=== PATIENT | male | born 1980 | race American Indian/Alaskan Native ===

== ENCOUNTER 2016-07-22 22:55 | Emergency (ER) | payer BC, MEDICARE ==
[2016-07-22 23:02] VITALS: BMI 49.1
[2016-07-22 23:04] VITALS: TEMP 99.2
[2016-07-22] MEDS ORDERED: Oxycodone/Acetaminophen 5/325 mg Tab PO STA (23:12)
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
[2016-07-23 01:09] VITALS: BP 154/90; PULSE 87; RESP 16; O2SAT 97
--- NOTE | 2016-07-23 08:45 | RAD ---
PROCEDURE: Left Knee Radiographs. HISTORY: Pain. COMPARISON: None. FINDINGS: BONES: Normal. No fracture. JOINTS: Normal. No osteoarthritis. JOINT EFFUSION: None. OTHER FINDINGS: None. IMPRESSION: Normal radiographs of the left knee.
== END 2016-07-23 01:07 | disposition home or self-care (01) ==
LOC: ED 22:55
DX: M25.562 Pain in left knee (principal); G89.29 Other chronic pain
CPT/HCPCS: 73562; 96372; 99284; J1885

== ENCOUNTER 2016-08-28 23:08 | Inpatient (IN) | payer BC, MEDICARE ==
[2016-08-28 23:37] VITALS: BMI 48.8
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
[2016-08-28] MEDS ORDERED: Sodium Chloride 0.9% 1,000 ML IV STA (23:52)
[2016-08-28] MEDS ORDERED: Morphine 4 mg/ml ISec IVP STA (23:52)
[2016-08-29 00:21] LABS: ALBUMIN 4.5 g/dL (3.0-4.8); ALT/SGPT 44 U/L (7-56); AST/SGOT 32 U/L (15-59); BLOOD UREA NITROGEN 16 mg/dL (7-21); CALCIUM 9.6 mg/dL (8.4-10.5); GFR AFRICAN-AMERICAN > 60; GFR NON-AFRICAN AMERICAN > 60; LIPASE 187 U/L (23-300); MEAN CELL VOLUME 88.3 fL (80.0-105.0); MEAN CORPUSCULAR HEMOGLOBIN 28.7 pg (25.0-35.0); MEAN CORPUSCULAR HGB CONC 32.6 g/dl (31.0-37.0); MEAN PLATELET VOLUME 9.1 fl (7.0-11.0); RBC 4.87 10^6/uL (3.5-6.1); RED CELL DISTRIBUTION WIDTH 13.7 % (11.5-14.5); WHITE BLOOD COUNT 14.3 10^3/ul (4.5-11.0)
[2016-08-29] MEDS ORDERED: cefTRIAXone 1 gm 1 GM/100 ML BAG IV STA ×2 (02:41→06:22)
[2016-08-29] MEDS ORDERED: metroNIDAZOLE IV 500 mg/100 ml 500 MG/100 ML BAG IVPB STA ×2 (02:42→06:12)
[2016-08-29 02:44] LABS: PH,URINE 5.5 (4.7-8.0); URINE BILIRUBIN NEGATIVE (NEGATIVE); URINE BLOOD TRACE-LYSED (NEGATIVE); URINE GLUCOSE (UA) NEGATIVE (NEGATIVE); URINE LEUKOCYTE ESTERASE NEGATIVE Leu/uL (NEGATIVE); URINE NITRATE NEGATIVE (NEGATIVE); URINE PROTEIN TRACE mg/dL (<30 mg/dL)
[2016-08-29 02:53] LABS: URINE APPEARANCE CLEAR (CLEAR); URINE COLOR YELLOW (YELLOW)
[2016-08-29] MEDS ORDERED: Sodium Chloride 0.9% 1,000 ML IV STA (02:53)
[2016-08-29 02:58] LABS: URINE EPITHELIAL CELLS 0 - 2 /hpf (0-5); URINE RBC 0 - 2 /hpf (0-2); URINE WBC 0 - 2 /hpf (0-6)
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
[2016-08-29] MEDS ORDERED: HYDROmorphone 1 mg/ml ISec IVP PRN (03:14)
--- NOTE | 2016-08-29 03:33 | CP.PCM.HP ---
History of Present Illness - History of Present Illness History of Present Illness: cc: Abdominal pain HPI: Patient is a 36 yo male with past medical history of HIV, HTN, SLE, rheumatoid arthritis, morbid obesity, and depression that presented to the ED c/ o intermittent RLQ abdomen pain for the past week. He reported that the pain radiates to the umbilicus, right groin and right flank. He describes the pain as sharp, 8/10 in severity that has been gradually worsening over the last week. Alleviating factors include rest and exacerbating factors include movement. He reported subjective fevers and chills however denied nausea and vomiting. Denies chest pain, palpitations, SOB, cough, focal weakness, numbness , tingling. A CT abdomen/pelvis done in the ED was consistent with acute appendicitis. He was subsequently admitted for surgical evaluation and medical management. 12point ROS as per HPI above otherwise negative PMHx: HTN, SLE, HIV, RA, depression PSHx: pericardial window in 2004 for a pericardial effusion Medications: Reviewed and as per chart Allergies: NKDA Social Hx: Former tobacco use, social alcohol use, denies illicit drug use Family Hx: History of HTN and DM2 runs in the family Present on Admission - Present on Admission Any Indicators Present on Admission: No Past Patient History - Infectious Disease Hx of Infectious Diseases: None - Tetanus Immunizations Tetanus Immunization: Unknown - Past Medical History & Family History Past Medical History?: Yes - Past Social History Smoking Status: Former Smoker - CARDIAC Hx Hypertension: Yes Other/Comment: pericaridal effusion - PULMONARY Hx Respiratory Disorders: No - NEUROLOGICAL Hx Neurological Disorder: No - HEENT Hx HEENT Problems: No - RENAL Hx Chronic Kidney Disease: No - ENDOCRINE/METABOLIC Hx Systemic Lupus Erythematosus: Yes - HEMATOLOGICAL/ONCOLOGICAL Other/Comment: HIV - INTEGUMENTARY Hx Dermatological Problems: No - MUSCULOSKELETAL/RHEUMATOLOGICAL Hx Falls: No Hx Osteoarthritis: Yes Hx Rheumatoid Arthritis: Yes - GASTROINTESTINAL Hx Gastrointestinal Disorders: No - GENITOURINARY/GYNECOLOGICAL Hx Genitourinary Disorders: No - PSYCHIATRIC Hx Substance Use: No - SURGICAL HISTORY Other/Comment: CARDIAC WINDOW 2004 - ANESTHESIA Hx Anesthesia: Yes Hx Anesthesia Reactions: No Hx Malignant Hyperthermia: No Meds Allergies/Adverse Reactions: Allergies Allergy/AdvReac Type Severity Reaction Status Date / Time No Known Allergies Allergy Verified 08/28/16 23:36 Physical Exam - Constitutional Appears: No Acute Distress - Head Exam Head Exam: ATRAUMATIC, NORMAL INSPECTION, NORMOCEPHALIC - Eye Exam Eye Exam: EOMI, PERRL - ENT Exam ENT Exam: Mucous Membranes Moist - Neck Exam Neck exam: Positive for: Normal Inspection. Negative for: Lymphadenopathy, Tenderness, Thyromegaly - Respiratory Exam Respiratory Exam: Clear to Auscultation Bilateral. absent: Rales, Rhonchi, Wheezes - Cardiovascular Exam Cardiovascular Exam: RRR, +S1, +S2. absent: Gallop, JVD, Rubs - GI/Abdominal Exam GI & Abdominal Exam: Distended, Guarding, Soft, Tenderness (RLQ tenderness to palpation,). absent: Rebound, Rigid Additional comments: positive mcburneys point - Extremities Exam Extremities exam: Positive for: normal inspection, pedal pulses present. Negative for: calf tenderness - Neurological Exam Neurological exam: Alert, CN II-XII Intact, Oriented x3 - Psychiatric Exam Psychiatric exam: Normal Affect, Normal Mood - Skin Skin Exam: Dry, Intact, Normal Color, Warm Results - Vital Signs Recent Vital Signs: Last Vital Signs Temp 100.0 F H 08/28/16 23:49 Pulse 118 H 08/28/16 23:49 Resp 20 08/28/16 23:49 BP 134/92 H 08/28/16 23:49 Pulse Ox 98 08/28/16 23:49 - Labs Result Diagrams: 08/28/16 23:55 08/28/16 23:55 Assessment & Plan - Assessment and Plan (Free Text) Plan: 36 yo male with past medical history of HIV, HTN, SLE, rheumatoid arthritis, morbid obesity, and depression presents c/o RLQ abdominal pain secondary to acute appendicitis 1. Acute appendicitis -CT Abd/pelvis consistent with acute appendicitis (please refer to full report) -Pain control -IVF hydration -Zofran PRN for nausea/vomiting -Tylenol PRN for fevers -Protonix -Patient given rocephin and flagyl in the ED for pre-surgical prophylaxis -NPO -Vitals q4h -Serial abdominal exams -Surgery consulted - Dr. Pelaez 2. HIV -Continue home medication stribild 3. Hypertension -Continue home norvac 4. GI/DVT prophylaxis -Protonix/SCD's Patient seen and case discussed with attending, Dr. Fowler - Date & Time Date: 08/29/16 Time: 03:37
[2016-08-29 07:04] LABS: BASO # 0.02 K/mm3 (0.0-2.0); BASO % 0.2 % (0.0-3.0); EOS % 0.3 % (1.5-5.0); GRAN # 7.34 (1.4-6.5); GRAN % 60.9 % (50.0-68.0); HEMOGLOBIN 13.2 gm/dL (14.0-18.0); LYMPH # 3.7 (1.2-3.4); MEAN CELL VOLUME 88.8 fL (80.0-105.0); MEAN CORPUSCULAR HEMOGLOBIN 28.4 pg (25.0-35.0); MEAN PLATELET VOLUME 9.1 fl (7.0-11.0); MONO # 0.9 (0.1-0.6); MONO % 7.6 % (1.0-6.0); PLATELET COUNT 306 10^3/uL (120.0-450.0); RBC 4.64 10^6/uL (3.5-6.1); RED CELL DISTRIBUTION WIDTH 13.9 % (11.5-14.5); WHITE BLOOD COUNT 12.1 10^3/ul (4.5-11.0)
[2016-08-29 07:19] LABS: INR 1.06 (0.93-1.08); PARTIAL THROMBOPLASTIN TIME 31.5 Seconds (23.7-30.8); PROTHROMBIN TIME 11.4 Seconds (9.9-11.8)
[2016-08-29 07:27] LABS: ALBUMIN 4.1 g/dL (3.0-4.8); ALT/SGPT 38 U/L (7-56); AST/SGOT 32 U/L (15-59); BLOOD UREA NITROGEN 15 mg/dL (7-21); CALCIUM 9.1 mg/dL (8.4-10.5); GFR AFRICAN-AMERICAN > 60; GFR NON-AFRICAN AMERICAN > 60
--- NOTE | 2016-08-29 07:45 | CT ---
PROCEDURE: CT Abdomen and Pelvis without intravenous contrast HISTORY: RIGHT LOWER ABD. PAIN COMPARISON: None. TECHNIQUE: Technique. Contrast Dose: Radiation dose: Total exam DLP = 1492 mGy-cm. This CT exam was performed using one or more of the following dose reduction techniques: Automated exposure control, adjustment of the mA and/or kV according to patient size, and/or use of iterative reconstruction technique. FINDINGS: LOWER THORAX: Unremarkable. LIVER: Unremarkable. No gross lesion or ductal dilatation. GALLBLADDER AND BILE DUCTS: CHOLELITHIASIS.. PANCREAS: Unremarkable. No gross lesion or ductal dilatation. SPLEEN: Unremarkable. ADRENALS: Unremarkable. No mass. KIDNEYS AND URETERS: Unremarkable. No hydronephrosis. No solid mass. VASCULATURE: Unremarkable. No aortic aneurysm. BOWEL: Unremarkable. No obstruction. No gross mural thickening. APPENDIX: MILD THICKENING OF THE APPENDIX WITH QUESTIONABLE REGIONAL INFLAMMATION; APPENDICITIS IS NOT EXCLUDED. PERITONEUM: Unremarkable. No free fluid. No free air. LYMPH NODES: Unremarkable. No enlarged lymph nodes. BLADDER: Unremarkable. REPRODUCTIVE: Unremarkable. BONES: No acute fracture. OTHER FINDINGS: None. IMPRESSION: MILD THICKENING OF THE APPENDIX WITH QUESTIONABLE REGIONAL INFLAMMATION; APPENDICITIS IS NOT EXCLUDED. CHOLELITHIASIS.
[2016-08-29] MEDS ORDERED: Bupivacaine 0.5% Inj(30mL) ONE (09:07)
[2016-08-29] MEDS ORDERED: Propofol 10 mg/ml Inj (20 ML) ONE (09:08)
[2016-08-29] MEDS ORDERED: Midazolam 2 MG/2 ML VIAL ONE (09:08)
[2016-08-29] MEDS ORDERED: Rocuronium 10 mg/ml (5 ml) ONE (09:09)
[2016-08-29] MEDS ORDERED: Succinylcholine 200 mg/10 ml Inj IV ONE (09:09)
--- NOTE | 2016-08-29 09:34 | CARD ---
APPROVED REPORT EKG Measurement Heart [id number] <Conclusion> Normal sinus rhythm Moderate voltage criteria for LVH, may be normal variant PRWP NSSTW changes Prolonged QT No change
[2016-08-29] MEDS ORDERED: Non Formulary Medication (Elviteg/Cobi/Emtric/Tenofo Dis [Stribild Tablet] 1 TAB) PO SCH (10:00)
[2016-08-29] MEDS ORDERED: cefTRIAXone (Rocephin) 1 gm Inj ONE ×2 (10:56→11:09)
[2016-08-29] MEDS ORDERED: Neostigmine Methylsulfate 3mg/3ml Syringe IV ONE (11:37)
[2016-08-29] MEDS ORDERED: HYDROmorphone 0.5 mg/0.5 ml ISec IVP PRN (12:11)
[2016-08-29] MEDS ORDERED: Lactated Ringer's 1,000 ML IV SCH (12:11)
--- NOTE | 2016-08-29 12:17 | PCM.SURG1 ---
Surgeon's Initial Post Op Note - Surgeon's Notes Surgeon: Dr. Pelaez Chips Screen Tender: Dr. Sierra PGY3; Dr. Cespedes PGY1 Type of Anesthesia: General Endo Pre-Operative Diagnosis: Acute Appendicitis Operative Findings: see operative report Post-Operative Diagnosis: same Operation Performed: Laparoscopic Appendectomy Specimen/Specimens Removed: appendix Estimated Blood Loss: EBL {In ML}: 5 Blood Products Given: N/A Post-Op Condition: Good Date of Surgery/Procedure: 08/29/16 Time of Surgery/Procedure: 12:17
--- NOTE | 2016-08-29 13:25 | CP.PCM.HP ---
History of Present Illness - History of Present Illness History of Present Illness: Mahendra Helm D.O. PGY-2, Internal Medicine, Dr. Marshall Service CC: RLQ Abdominal pain for 1 week 36 year old male with a PMH of HIV, HTN, SLE, RA, morbid obesity, and depression who presented to [facility] [place] [facility] with complaints of intermittent RLQ abdominal pain for the last week. Patient states that last monday he began to have this pain that radiated to his umbilicus, right groin and his flank as well. Patient states the pain is 8/10, sharp, worsening, intermittent, better with rest, worse with movement, and he had some chills and subjective fevers. No other complaints. Of note patient states that he came to the ER about 3-4 months ago with similar complaints and did have a full work up which did not reveal any issues. PMD: in [facility] PMH: as above PSH: pericardial window for effusion SH: quit smoking, social alcohol, no illicit drugs FH: HTN and DM in the multiple family members Medications: reviewed Allergies: NKA Present on Admission - Present on Admission Any Indicators Present on Admission: No Review of Systems - Constitutional Constitutional: Chills, Fever. absent: Anorexia - EENT Eyes: absent: Blind Spots, Blurred Vision Ears: absent: Decreased Hearing, Ear Discharge Nose/Mouth/Throat: absent: Epistaxis, Nasal Congestion - Cardiovascular Cardiovascular: absent: Chest Pain, Dyspnea - Respiratory Respiratory: absent: Cough, Dyspnea - Gastrointestinal Gastrointestinal: Abdominal Pain, Cramping. absent: Change in Bowel Habits - Genitourinary Genitourinary: absent: Difficulty Urinating, Dysuria - Musculoskeletal Musculoskeletal: Stiffness. absent: Numbness - Integumentary Integumentary: absent: Erythema, Furuncle - Neurological Neurological: absent: Abnormal Gait, Abnormal Hearing Past Patient History - Infectious Disease Hx of Infectious Diseases: None - Tetanus Immunizations Tetanus Immunization: Unknown - Past Medical History & Family History Past Medical History?: Yes - Past Social History Smoking Status: Former Smoker - CARDIAC Hx Hypertension: Yes Other/Comment: pericaridal effusion - PULMONARY Hx Respiratory Disorders: No - NEUROLOGICAL Hx Neurological Disorder: No - HEENT Hx HEENT Problems: No - RENAL Hx Chronic Kidney Disease: No - ENDOCRINE/METABOLIC Hx Systemic Lupus Erythematosus: Yes - HEMATOLOGICAL/ONCOLOGICAL Hx Blood Transfusions: No Hx Blood Transfusion Reaction: No - INTEGUMENTARY Hx Dermatological Problems: No - MUSCULOSKELETAL/RHEUMATOLOGICAL Hx Falls: No Hx Osteoarthritis: Yes Hx Rheumatoid Arthritis: Yes - GASTROINTESTINAL Hx Gastrointestinal Disorders: No - GENITOURINARY/GYNECOLOGICAL Hx Genitourinary Disorders: No - PSYCHIATRIC Hx Substance Use: No - SURGICAL HISTORY Hx Surgeries: Yes - ANESTHESIA Hx Anesthesia Reactions: No Hx Malignant Hyperthermia: No Meds Allergies/Adverse Reactions: Allergies Allergy/AdvReac Type Severity Reaction Status Date / Time No Known Allergies Allergy Verified 08/28/16 23:36 Physical Exam - Constitutional Appears: Non-toxic, No Acute Distress - Head Exam Head Exam: ATRAUMATIC, NORMOCEPHALIC - Eye Exam Eye Exam: EOMI, Normal appearance - ENT Exam ENT Exam: Mucous Membranes Moist, Normal Oropharynx - Neck Exam Additional comments: soft, supple - Respiratory Exam Respiratory Exam: Clear to Auscultation Bilateral. absent: Accessory Muscle Use , Rales, Rhonchi, Wheezes, Respiratory Distress - Cardiovascular Exam Cardiovascular Exam: RRR, +S1, +S2. absent: Gallop, Rubs, Systolic Murmur - GI/Abdominal Exam GI & Abdominal Exam: Distended, Guarding, Soft, Tenderness (RLQ) - Extremities Exam Extremities exam: Negative for: calf tenderness - Back Exam Back exam: absent: paraspinal tenderness, vertebral tenderness - Neurological Exam Neurological exam: Alert, CN II-XII Intact, Oriented x3 Results - Vital Signs Recent Vital Signs: Last Vital Signs Temp 98.7 F 08/29/16 12:58 Pulse 81 08/29/16 12:58 Resp 18 08/29/16 12:58 BP 143/91 H 08/29/16 12:58 Pulse Ox 98 08/29/16 12:58 - Labs Result Diagrams: 08/29/16 06:35 08/29/16 06:35 Labs: Laboratory Results - last 24 hr 08/29/16 08/29/16 08/29/16 06:35 06:35 06:35 WBC 12.1 H RBC 4.64 Hgb 13.2 L Hct 41.2 L MCV 88.8 MCH 28.4 MCHC 32.0 RDW 13.9 Plt Count 306 MPV 9.1 Gran % 60.9 Lymph % (Auto) 31.0 [place] % (Auto) 7.6 H Eos % (Auto) 0.3 L Baso % (Auto) 0.2 Gran # 7.34 H Lymph # 3.7 H [place] # 0.9 H Eos # 0.0 Baso # 0.02 PT 11.4 INR 1.06 APTT 31.5 H Sodium 141 Potassium 4.2 Chloride 103 Carbon Dioxide 27 Anion Gap 15 BUN 15 Creatinine 1.2 Est GFR ( Amer) > 60 Est GFR (Non-Af Amer) > 60 Random Glucose 103 Lactic Acid Calcium 9.1 Total Bilirubin 0.7 AST 32 ALT 38 Alkaline Phosphatase 76 Total Protein 8.4 H Albumin 4.1 Globulin 4.3 Albumin/Globulin Ratio 1.0 L Blood Type Blood Type Confirm Antibody Screen BBK History Checked 08/29/16 08/29/16 08/29/16 06:35 06:45 07:35 WBC RBC Hgb Hct MCV MCH MCHC RDW Plt Count MPV Gran % Lymph % (Auto) [place] % (Auto) Eos % (Auto) Baso % (Auto) Gran # Lymph # [place] # Eos # Baso # PT INR APTT Sodium Potassium Chloride Carbon Dioxide Anion Gap BUN Creatinine Est GFR ( Amer) Est GFR (Non-Af Amer) Random Glucose Lactic Acid 1.7 Calcium Total Bilirubin AST ALT Alkaline Phosphatase Total Protein Albumin Globulin Albumin/Globulin Ratio Blood Type AB POSITIVE Blood Type Confirm AB POSITIVE Antibody Screen Negative BBK History Checked No verified bt Assessment & Plan - Assessment and Plan (Free Text) Assessment: 36 year old male with a PMH of HIV, HTN, SLE, RA, morbid obesity, and depression who presented with complaints of intermittent RLQ abdominal pain for 1 week Plan: 1. Abdominal pain CT abd/pelvis consistent with acute appendicitis Surgery Dr. Pelaez consulted, discussed with surgery resident, will be going to surgery today NPO PRN zofran and tylenol Pain control Vitals q4h IVF Protonix 2. HIV - well managed, follows up regularly with ID, on stribild, cont 3. HTN - continue home norvasc, will monitor GI/DVT ppx: Protonix/SCDs Patient was seen and examined and case was discussed at length with attending physician. - Date & Time Date: 08/29/16 Time: 06:38
[2016-08-29] MEDS ORDERED: [UNRECOGNIZED DRUG - OTHER] PO SCH (14:39)
[2016-08-29] MEDS: Oxycodone/Acetaminophen 5/325 mg Tab PO PRN ×2 (17:52→23:43)
[2016-08-30] MEDS: Benzocaine/Menthol (Cepacol) Lozenge MT PRN ×2 (06:00→09:57)
[2016-08-30 08:07] VITALS: BP 124/75; RESP 20; TEMP 98.1; O2SAT 100
[2016-08-30 08:12] LABS: BASO # 0.02 K/mm3 (0.0-2.0); BASO % 0.2 % (0.0-3.0); EOS # 0.2 (0.0-0.7); EOS % 1.7 % (1.5-5.0); GRAN # 5.16 (1.4-6.5); GRAN % 59.3 % (50.0-68.0); HEMOGLOBIN 12.4 gm/dL (14.0-18.0); LYMPH # 2.7 (1.2-3.4); LYMPH % 30.5 % (22.0-35.0); MEAN CORPUSCULAR HEMOGLOBIN 28.1 pg (25.0-35.0); MEAN CORPUSCULAR HGB CONC 31.2 g/dl (31.0-37.0); MEAN PLATELET VOLUME 9.6 fl (7.0-11.0); MONO # 0.7 (0.1-0.6); MONO % 8.3 % (1.0-6.0); PLATELET COUNT 270 10^3/uL (120.0-450.0); RBC 4.42 10^6/uL (3.5-6.1); WHITE BLOOD COUNT 8.7 10^3/ul (4.5-11.0)
[2016-08-30 08:32] LABS: ALBUMIN 3.9 g/dL (3.0-4.8); ALT/SGPT 38 U/L (7-56); AST/SGOT 31 U/L (15-59); BLOOD UREA NITROGEN 12 mg/dL (7-21); CALCIUM 8.8 mg/dL (8.4-10.5); GFR AFRICAN-AMERICAN > 60; GFR NON-AFRICAN AMERICAN > 60
--- NOTE | 2016-08-30 09:01 | CP.PCM.PN ---
Subjective - Date & Time of Evaluation Date of Evaluation: 08/30/16 Time of Evaluation: 07:58 - Subjective Subjective: General Surgery Note Dr. Hilton Patient S&E at bedside. NAEON. Patient admits to dizziness. Currently tolerating diet. Patient has not had a BM. Patient admits to abdominal pain. Patient denies N/V, C/D. Objective - Vital Signs/Intake and Output Vital Signs (last 24 hours): Temp Pulse Resp BP Pulse Ox 98.1 F 64 20 124/75 100 08/30/16 08:06 08/30/16 08:06 08/30/16 08:06 08/30/16 08:06 08/30/16 08:06 Intake and Output: 08/30/16 08/30/16 06:59 18:59 Intake Total 1080 Balance 1080 - Medications Medications: Current Medications Acetaminophen (Tylenol 325mg Tab) 650 mg PO Q4H PRN PRN Reason: Fever >100.4 F Last Admin: 08/30/16 08:45 Dose: 650 mg Amlodipine Besylate (Norvasc) 5 mg PO DAILY [facility] Last Admin: 08/29/16 17:52 Dose: 5 mg Benzocaine/Menthol (Cepacol Sore Throat) 1 [place] Q2H PRN PRN Reason: Sore Throat Last Admin: 08/30/16 06:00 Dose: 1 [place]mer Hydromorphone HCl (Dilaudid) 0.5 mg IVP Q15M PRN PRN Reason: Pain, moderate (4-7) Hydroxychloroquine Sulfate (Plaquenil) 200 mg PO DAILY [facility] Last Admin: 08/29/16 17:52 Dose: 200 mg Elviteg/Margie/Emtric/Tenofo Dis [Stribild Tablet] (Home Med) 1 tab PO DAILY [facility] Ondansetron HCl (Zofran Inj) 4 mg IVP Q4H PRN PRN Reason: Nausea/Vomiting Last Admin: 08/29/16 06:45 Dose: 4 mg Oxycodone/Acetaminophen (Percocet 5/325 Mg Tab) 2 tab PO Q4H PRN PRN Reason: Pain, moderate (4-7) Stop: 09/01/16 12:15 Last Admin: 08/29/16 23:43 Dose: 2 tab Pantoprazole Sodium (Protonix Inj) 40 mg IVP DAILY [facility] Last Admin: 08/29/16 09:30 Dose: Not Given - Labs Labs: 08/30/16 08:05 08/30/16 08:05 PT 11.4 Seconds (9.9-11.8) 08/29/16 06:35 INR 1.06 (0.93-1.08) 08/29/16 06:35 APTT 31.5 Seconds (23.7-30.8) H 08/29/16 06:35 - Constitutional Appears: Well, No Acute Distress - Head Exam Head Exam: NORMAL INSPECTION - Eye Exam Eye Exam: EOMI, Normal appearance - Neck Exam Neck Exam: Full ROM - Respiratory Exam Respiratory Exam: NORMAL BREATHING PATTERN. absent: Accessory Muscle Use, Wheezes, Respiratory Distress - GI/Abdominal Exam GI & Abdominal Exam: Distended, Soft Additional comments: incision sites c/d/i. no signs of induration, erythema, drainage - Extremities Exam Extremities Exam: Full ROM - Back Exam Back Exam: Full ROM - Neurological Exam Neurological Exam: Alert, Awake, Oriented x3 - Psychiatric Exam Psychiatric exam: Flat Affect, Normal Mood - Skin Skin Exam: Dry, Normal Color, Warm Assessment and Plan - Assessment and Plan (Free Text) Assessment: 36 M presents with appendicitis s/p appendectomy POD #1 Plan: Monitor for tolerate regular diet. monitor CBC consider discharging patient from surgery standpoint
[2016-08-30 10:06] VITALS: PULSE 59
[2016-08-30] MEDS ORDERED: [UNRECOGNIZED DRUG - OTHER] PO SCH (10:25)
--- NOTE | 2016-08-30 10:31 | CP.PCM.DIS ---
<LAURA JUSTICE - Last Filed: 08/30/16 11:40> Provider - Provider Date of Admission: 08/29/16 02:35 Attending physician: Nito Marshall MD Primary care physician: Janak Boone MD Consults: Surgery: Benigno Time Spent in preparation of Discharge (in minutes): 40 Diagnosis - Discharge Diagnosis (1) Appendicitis Status: Acute Priority: High (2) Abdominal pain Status: Acute Priority: Medium (3) Bronchitis Status: Chronic Priority: Low Hospital Course - Lab Results Lab Results: Micro Results 08/29/16 03:20 Blood-Venous Blood Culture - Preliminary NO GROWTH AFTER 24 HOURS 08/29/16 03:05 Blood-Venous Blood Culture - Preliminary NO GROWTH AFTER 24 HOURS Most Recent Lab Values WBC 8.7 10^3/ul (4.5-11.0) D 08/30/16 08:05 RBC 4.42 10^6/uL (3.5-6.1) 08/30/16 08:05 Hgb 12.4 gm/dL (14.0-18.0) L 08/30/16 08:05 Hct 39.8 % (42.0-52.0) L 08/30/16 08:05 MCV 90.0 fL (80.0-105.0) 08/30/16 08:05 MCH 28.1 pg (25.0-35.0) 08/30/16 08:05 MCHC 31.2 g/dl (31.0-37.0) 08/30/16 08:05 RDW 14.0 % (11.5-14.5) 08/30/16 08:05 Plt Count 270 10^3/uL (120.0-450.0) 08/30/16 08:05 MPV 9.6 fl (7.0-11.0) 08/30/16 08:05 Gran % 59.3 % (50.0-68.0) 08/30/16 08:05 Lymph % (Auto) 30.5 % (22.0-35.0) 08/30/16 08:05 [place] % (Auto) 8.3 % (1.0-6.0) H 08/30/16 08:05 Eos % (Auto) 1.7 % (1.5-5.0) 08/30/16 08:05 Baso % (Auto) 0.2 % (0.0-3.0) 08/30/16 08:05 Gran # 5.16 (1.4-6.5) 08/30/16 08:05 Lymph # 2.7 (1.2-3.4) 08/30/16 08:05 [place] # 0.7 (0.1-0.6) H 08/30/16 08:05 Eos # 0.2 (0.0-0.7) 08/30/16 08:05 Baso # 0.02 K/mm3 (0.0-2.0) 08/30/16 08:05 PT 11.4 Seconds (9.9-11.8) 08/29/16 06:35 INR 1.06 (0.93-1.08) 08/29/16 06:35 APTT 31.5 Seconds (23.7-30.8) H 08/29/16 06:35 Sodium 139 mmol/L (132-148) 08/30/16 08:05 Potassium 4.3 mmol/L (3.6-5.0) 08/30/16 08:05 Chloride 100 mmol/L (98-107) 08/30/16 08:05 Carbon Dioxide 29 mmol/L (21-33) 08/30/16 08:05 Anion Gap 14 (10-20) 08/30/16 08:05 BUN 12 mg/dL (7-21) 08/30/16 08:05 Creatinine 1.1 mg/dL (0.5-1.4) 08/30/16 08:05 Est GFR ( Amer) > 60 08/30/16 08:05 Est GFR (Non-Af Amer) > 60 08/30/16 08:05 Random Glucose 108 mg/dL (70-110) 08/30/16 08:05 Lactic Acid 1.7 mmol/L (0.7-2.1) 08/29/16 06:45 Calcium 8.8 mg/dL (8.4-10.5) 08/30/16 08:05 Total Bilirubin 0.8 mg/dL (0.2-1.3) 08/30/16 08:05 AST 31 U/L (15-59) 08/30/16 08:05 ALT 38 U/L (7-56) 08/30/16 08:05 Alkaline Phosphatase 67 U/L (38-133) 08/30/16 08:05 Total Protein 8.0 g/dL (5.8-8.3) 08/30/16 08:05 Albumin 3.9 g/dL (3.0-4.8) 08/30/16 08:05 Globulin 4.1 gm/dL 08/30/16 08:05 Albumin/Globulin Ratio 1.0 (1.1-1.8) L 08/30/16 08:05 Lipase 187 U/L (23-300) 08/28/16 23:55 Procalcitonin < 0.05 NG/ML (0.19-0.49) L 08/28/16 23:55 Urine Color Yellow (YELLOW) 08/29/16 02:33 Urine Appearance Clear (CLEAR) 08/29/16 02:33 Urine pH 5.5 (4.7-8.0) 08/29/16 02:33 Ur Specific [place] >= 1.030 (1.005-1.035) 08/29/16 02:33 Urine Protein Trace mg/dL (<30 mg/dL) H 08/29/16 02:33 Urine Glucose (UA) Negative mg/dL (NEGATIVE) 08/29/16 02:33 Urine Ketones Negative mg/dL (NEGATIVE) 08/29/16 02:33 Urine Blood Trace-lysed (NEGATIVE) H 08/29/16 02:33 Urine Nitrate Negative (NEGATIVE) 08/29/16 02:33 Urine Bilirubin Negative (NEGATIVE) 08/29/16 02:33 Urine Urobilinogen 1.0 E.U./dL (<1 E.U./dL) H 08/29/16 02:33 Ur Leukocyte Esterase Negative Mauricio/uL (NEGATIVE) 08/29/16 02:33 Urine RBC 0 - 2 /hpf (0-2) 08/29/16 02:33 Urine WBC 0 - 2 /hpf (0-6) 08/29/16 02:33 Ur Epithelial Cells 0 - 2 /hpf (0-5) 08/29/16 02:33 Blood Type AB POSITIVE 08/29/16 06:35 Blood Type Confirm AB POSITIVE 08/29/16 07:35 Antibody Screen Negative 08/29/16 06:35 BBK History Checked No verified bt 08/29/16 06:35 - Hospital Course Hospital Course: This is a 36 year old male with a PMH of HIV, HTN, SLE, RA, morbid obesity, and depression who initially presented to [facility] with complaints of intermittent RLQ abdominal for the previous 6 days radiating to the umbilicus. In the ED, basic labwork was done which was significant for a white count of 14.3, low grade fever to 100.0, HR 118. CT abdomen and pelvis in the ED showed mild thickening of the appendix with questionable regional inflammation; appendicitis not excluded. Patient was admitted to [facility] for appendicitis. Surgery was consulted and recommended laparoscopic appendectomy. Surgery was uneventful with no complications. Overnight, no acute events. Today, POD 1, he is doing well, tolerating oral diet, urinating and passing flatus, with only minimal abdominal pain, improving since this morning. All questions were answered to patient's satisfaction and discharged to home. Discharge Exam - Head Exam Head Exam: NORMAL INSPECTION - Eye Exam Eye Exam: EOMI, Normal appearance, PERRL - ENT Exam ENT Exam: Mucous Membranes Moist - Neck Exam Neck exam: Full Rom - Respiratory Exam Respiratory Exam: Clear to PA & Lateral, NORMAL BREATHING PATTERN - Cardiovascular Exam Cardiovascular Exam: REGULAR RHYTHM, +S1, +S2. absent: JVD - GI/Abdominal Exam GI & Abdominal Exam: Normal Bowel Sounds. absent: Guarding, Rigid, Tenderness Additional comments: 3 wounds, CDI - Extremities Exam Extremities exam: normal inspection - Back Exam Back exam: absent: CVA tenderness (L), CVA tenderness (R) - Neurological Exam Neurological exam: Alert, CN II-XII Intact, Oriented x3 - Psychiatric Exam Psychiatric exam: Normal Affect, Normal Mood - Skin Skin Exam: Dry, Intact, Normal Color Discharge Plan - Discharge Medications Prescriptions: Docusate Sodium [Colace] 100 mg PO Q8H PRN #20 capsule PRN Reason: Constipation oxyCODONE/Acetaminophen [Percocet 5/325 mg Tab] 1 ea PO Q6H PRN #30 tab PRN Reason: Pain, Moderate (4-7) - Follow Up Plan Condition: IMPROVED Disposition: HOME/ ROUTINE Patient education suggested?: Yes Instructions: Pain Management After Surgery (DC), Laparoscopic Appendectomy (DC ), Narcotic Pain Management (DC), Acute Abdominal Pain (DC), Acute Abdominal Pain (GEN) Additional Instructions: 1. Follow up with PMD within 2-3 days 2. Follow up with surgery within 1-2 weeks as indicated 3. Return to the ER if experiencing any new or worsening symptoms Referrals: Janak Boone MD [Primary Care Provider] - Angel Pelaez MD [Medical Doctor] - <Jj Rosario - Last Filed: 08/31/16 15:28> Provider - Provider Date of Admission: 08/29/16 02:35 Attending physician: Nito Marshall MD Primary care physician: Janak Boone MD Hospital Course - Lab Results Lab Results: Micro Results 08/29/16 03:20 Blood-Venous Blood Culture - Preliminary NO GROWTH AFTER 48 HOURS 08/29/16 03:05 Blood-Venous Blood Culture - Preliminary NO GROWTH AFTER 48 HOURS Most Recent Lab Values WBC 8.7 10^3/ul (4.5-11.0) D 08/30/16 08:05 RBC 4.42 10^6/uL (3.5-6.1) 08/30/16 08:05 Hgb 12.4 gm/dL (14.0-18.0) L 08/30/16 08:05 Hct 39.8 % (42.0-52.0) L 08/30/16 08:05 MCV 90.0 fL (80.0-105.0) 08/30/16 08:05 MCH 28.1 pg (25.0-35.0) 08/30/16 08:05 MCHC 31.2 g/dl (31.0-37.0) 08/30/16 08:05 RDW 14.0 % (11.5-14.5) 08/30/16 08:05 Plt Count 270 10^3/uL (120.0-450.0) 08/30/16 08:05 MPV 9.6 fl (7.0-11.0) 08/30/16 08:05 Gran % 59.3 % (50.0-68.0) 08/30/16 08:05 Lymph % (Auto) 30.5 % (22.0-35.0) 08/30/16 08:05 [place] % (Auto) 8.3 % (1.0-6.0) H 08/30/16 08:05 Eos % (Auto) 1.7 % (1.5-5.0) 08/30/16 08:05 Baso % (Auto) 0.2 % (0.0-3.0) 08/30/16 08:05 Gran # 5.16 (1.4-6.5) 08/30/16 08:05 Lymph # 2.7 (1.2-3.4) 08/30/16 08:05 [place] # 0.7 (0.1-0.6) H 08/30/16 08:05 Eos # 0.2 (0.0-0.7) 08/30/16 08:05 Baso # 0.02 K/mm3 (0.0-2.0) 08/30/16 08:05 PT 11.4 Seconds (9.9-11.8) 08/29/16 06:35 INR 1.06 (0.93-1.08) 08/29/16 06:35 APTT 31.5 Seconds (23.7-30.8) H 08/29/16 06:35 Sodium 139 mmol/L (132-148) 08/30/16 08:05 Potassium 4.3 mmol/L (3.6-5.0) 08/30/16 08:05 Chloride 100 mmol/L (98-107) 08/30/16 08:05 Carbon Dioxide 29 mmol/L (21-33) 08/30/16 08:05 Anion Gap 14 (10-20) 08/30/16 08:05 BUN 12 mg/dL (7-21) 08/30/16 08:05 Creatinine 1.1 mg/dL (0.5-1.4) 08/30/16 08:05 Est GFR ( Amer) > 60 08/30/16 08:05 Est GFR (Non-Af Amer) > 60 08/30/16 08:05 Random Glucose 108 mg/dL (70-110) 08/30/16 08:05 Lactic Acid 1.7 mmol/L (0.7-2.1) 08/29/16 06:45 Calcium 8.8 mg/dL (8.4-10.5) 08/30/16 08:05 Total Bilirubin 0.8 mg/dL (0.2-1.3) 08/30/16 08:05 AST 31 U/L (15-59) 08/30/16 08:05 ALT 38 U/L (7-56) 08/30/16 08:05 Alkaline Phosphatase 67 U/L (38-133) 08/30/16 08:05 Total Protein 8.0 g/dL (5.8-8.3) 08/30/16 08:05 Albumin 3.9 g/dL (3.0-4.8) 08/30/16 08:05 Globulin 4.1 gm/dL 08/30/16 08:05 Albumin/Globulin Ratio 1.0 (1.1-1.8) L 08/30/16 08:05 Lipase 187 U/L (23-300) 08/28/16 23:55 Procalcitonin < 0.05 NG/ML (0.19-0.49) L 08/28/16 23:55 Urine Color Yellow (YELLOW) 08/29/16 02:33 Urine Appearance Clear (CLEAR) 08/29/16 02:33 Urine pH 5.5 (4.7-8.0) 08/29/16 02:33 Ur Specific [place] >= 1.030 (1.005-1.035) 08/29/16 02:33 Urine Protein Trace mg/dL (<30 mg/dL) H 08/29/16 02:33 Urine Glucose (UA) Negative mg/dL (NEGATIVE) 08/29/16 02:33 Urine Ketones Negative mg/dL (NEGATIVE) 08/29/16 02:33 Urine Blood Trace-lysed (NEGATIVE) H 08/29/16 02:33 Urine Nitrate Negative (NEGATIVE) 08/29/16 02:33 Urine Bilirubin Negative (NEGATIVE) 08/29/16 02:33 Urine Urobilinogen 1.0 E.U./dL (<1 E.U./dL) H 08/29/16 02:33 Ur Leukocyte Esterase Negative Mauricio/uL (NEGATIVE) 08/29/16 02:33 Urine RBC 0 - 2 /hpf (0-2) 08/29/16 02:33 Urine WBC 0 - 2 /hpf (0-6) 08/29/16 02:33 Ur Epithelial Cells 0 - 2 /hpf (0-5) 08/29/16 02:33 Blood Type AB POSITIVE 08/29/16 06:35 Blood Type Confirm AB POSITIVE 08/29/16 07:35 Antibody Screen Negative 08/29/16 06:35 BBK History Checked No verified bt 08/29/16 06:35 Attending/Attestation - Attestation I have personally seen and examined this patient.: Yes I have fully participated in the care of the patient.: Yes I have reviewed all pertinent clinical information, including history, physical exam and plan: Yes Notes (Text): 08/31/16 15:28 Medical record note made by the resident after discussion with my direction and input after the patient was personally seen and examined by me. I have reviewed the chart and agree that the record accurately reflects by personal performance of the history, physical exam, data review, and medical decision-making, in the course for the patient. I have also personally directed the plan of care.
== END 2016-08-30 14:15 | disposition home or self-care (01) | DRG 342 ==
LOC: ED 23:08 → ERH 08-29 02:35 → 5RSO 08-29 04:40
PROVIDERS: ADMIT Internal Medicine; ATTEND Internal Medicine
PROC: 0DTJ4ZZ Resection of Appendix, Percutaneous Endoscopic Approach (ICD-10-PCS; principal; 2016-08-29 10:00)
DX: K35.80 Unspecified acute appendicitis (principal); Z68.42 Body mass index [BMI] 45.0-49.9, adult; M32.9 Systemic lupus erythematosus, unspecified; Z21 Asymptomatic human immunodeficiency virus [HIV] infection status; I10 Essential (primary) hypertension; M06.9 Rheumatoid arthritis, unspecified; F32.9 Major depressive disorder, single episode, unspecified; E66.01 Morbid (severe) obesity due to excess calories; J40 Bronchitis, not specified as acute or chronic; Z87.891 Personal history of nicotine dependence

== ENCOUNTER 2016-11-23 16:00 | Emergency (ER) | payer BC, MEDICARE ==
[2016-11-23 16:05] VITALS: BMI 55.5
[2016-11-23 16:19] VITALS: TEMP 97.9; O2SAT 98
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
--- NOTE | 2016-11-23 16:56 | RAD ---
HISTORY: chest pain COMPARISON: Portable chest 02/17/2016. FINDINGS: LUNGS: No active pulmonary disease. PLEURA: No significant pleural effusion identified, no pneumothorax apparent. CARDIOVASCULAR: Stable prominent cardiac silhouette. No pulmonary vascular derangement appreciated. OSSEOUS STRUCTURES: No significant abnormalities. VISUALIZED UPPER ABDOMEN: Normal. OTHER FINDINGS: None. IMPRESSION: No acute cardiopulmonary disease identified in the interval. Stable prominent cardiac silhouette again noted.
[2016-11-23 17:09] LABS: BASO # 0.01 K/mm3 (0.0-2.0); BASO % 0.1 % (0.0-3.0); EOS % 0.3 % (1.5-5.0); GRAN # 4.41 (1.4-6.5); HEMATOCRIT 43.1 % (42.0-52.0); LYMPH # 3.8 (1.2-3.4); LYMPH % 41.7 % (22.0-35.0); MEAN CELL VOLUME 88.3 fl (80.0-105.0); MEAN CORPUSCULAR HEMOGLOBIN 28.5 pg (25.0-35.0); MEAN CORPUSCULAR HGB CONC 32.3 g/dl (31.0-37.0); MEAN PLATELET VOLUME 8.9 fl (7.0-11.0); MONO # 0.8 (0.1-0.6); MONO % 8.9 % (1.0-6.0); RED CELL DISTRIBUTION WIDTH 13.8 % (11.5-14.5)
[2016-11-23 17:18] LABS: ALKALINE PHOSPHATASE 61 U/L (38-126); ALT/SGPT 28 U/L (7-56); AST/SGOT 26 U/L (17-59); BILIRUBIN,TOTAL 0.6 mg/dL (0.2-1.3); BLOOD UREA NITROGEN 13 mg/dL (7-21); CALCIUM 9.5 mg/dL (8.4-10.5); CARBON DIOXIDE 29 mmol/L (21-33); CHLORIDE 103 mmol/L (98-107); GFR AFRICAN-AMERICAN > 60; GLUCOSE,RANDOM 105 mg/dL (70-110); MAGNESIUM 1.9 mg/dL (1.7-2.2); POTASSIUM 4.3 mmol/L (3.6-5.0); SODIUM 144 mmol/L (132-148); TOTAL PROTEIN 8.4 g/dL (5.8-8.3)
[2016-11-23 17:20] LABS: INR 1.01 (0.93-1.08); PARTIAL THROMBOPLASTIN TIME 28.4 Seconds (23.7-30.8)
[2016-11-23 17:21] LABS: D DIMER 0.39 mg/L FEU (0-0.50)
[2016-11-23 17:33] LABS: TROPONIN I < 0.01 ng/mL
[2016-11-23 19:05] VITALS: BP 139/82; PULSE 91; RESP 16
--- NOTE | 2016-11-24 08:49 | CARD ---
APPROVED REPORT EKG Measurement Heart [id number] <Conclusion> Sinus tachycardia Possible Left atrial enlargement Nonspecific STT wave abnormality LVH Prolonged QTc No change except increased heart rate
== END 2016-11-23 18:30 | disposition home or self-care (01) ==
LOC: ED 16:00
DX: R07.9 Chest pain, unspecified (principal); I10 Essential (primary) hypertension; M32.9 Systemic lupus erythematosus, unspecified; M06.9 Rheumatoid arthritis, unspecified; F17.210 Nicotine dependence, cigarettes, uncomplicated

== ENCOUNTER 2017-03-24 09:47 | Emergency (ER) | payer BC, MEDICARE ==
[2017-03-24 09:48] VITALS: BMI 55.5
[2017-03-24 10:20] VITALS: TEMP 97.9
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
[2017-03-24 12:29] VITALS: BP 141/91; PULSE 74; RESP 18; O2SAT 99
--- NOTE | 2017-03-24 13:30 | RAD ---
PROCEDURE: Radiographs of the Lumbar Spine. HISTORY: back pain COMPARISON: No prior. FINDINGS: BONES: There is normal alignment of the lumbar vertebral bodies. There is normal lumbar lordosis. There is no acute fracture, spondylolysis or spondylolisthesis. Bone mineralization is normal. DISC SPACES: There mild degenerative disc disease in the lower lumbar spine with anterior spurring, reduced disc heights and multilevel facet arthropathy. OTHER FINDINGS: There are no pathologic soft tissue calcifications. Both sacroiliac joints are IMPRESSION: No acute fracture, spondylolysis or spondylolisthesis. Mild multilevel degenerative disc disease.
== END 2017-03-24 13:45 | disposition home or self-care (01) ==
LOC: ED 09:47
DX: M54.9 Dorsalgia, unspecified (principal); I10 Essential (primary) hypertension; F17.210 Nicotine dependence, cigarettes, uncomplicated
CPT/HCPCS: 72110; 96372; 99284; J1885

== ENCOUNTER 2017-12-10 20:37 | Emergency (ER) | payer BC, MEDICARE ==
[2017-12-10 20:37] VITALS: BMI 55.5
[2017-12-10 21:51] VITALS: RESP 18
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
[2017-12-10 23:36] VITALS: BP 135/81; PULSE 75; TEMP 98.2; O2SAT 100
== END 2017-12-10 23:40 | disposition home or self-care (01) ==
LOC: ED 20:37
DX: M10.9 Gout, unspecified (principal); I10 Essential (primary) hypertension; M06.9 Rheumatoid arthritis, unspecified; M32.9 Systemic lupus erythematosus, unspecified; F17.210 Nicotine dependence, cigarettes, uncomplicated

== ENCOUNTER 2018-02-09 23:15 | Inpatient (IN) | payer BC ==
[2018-02-10] MEDS ORDERED: Sodium Chloride 0.9% 1,000 ML IV STA (01:24)
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
[2018-02-10 01:57] LABS: BASO # 0.01 K/mm3 (0.0-2.0); BASO % 0.1 % (0.0-3.0); EOS % 0.1 % (1.5-5.0); GRAN # 8.14 (1.4-6.5); GRAN % 61.9 % (50.0-68.0); HEMOGLOBIN 13.7 g/dL (14.0-18.0); LYMPH # 3.8 (1.2-3.4); LYMPH % 28.7 % (22.0-35.0); MEAN CELL VOLUME 88.3 fl (80.0-105.0); MEAN CORPUSCULAR HEMOGLOBIN 28.6 pg (25.0-35.0); MEAN CORPUSCULAR HGB CONC 32.4 g/dl (31.0-37.0); MONO # 1.2 (0.1-0.6); MONO % 9.2 % (1.0-6.0); RBC 4.79 10^6/uL (3.5-6.1); RED CELL DISTRIBUTION WIDTH 14.1 % (11.5-14.5); WHITE BLOOD COUNT 13.1 10^3/uL (4.5-11.0)
[2018-02-10 02:05] LABS: ALBUMIN 4.4 g/dL (3.0-4.8); ALT/SGPT 74 U/L (7-56); AST/SGOT 79 U/L (17-59); BLOOD UREA NITROGEN 11 mg/dL (7-21); CALCIUM 9.1 mg/dL (8.4-10.5); GFR NON-AFRICAN AMERICAN > 60
[2018-02-10 02:18] LABS: INFLUENZA A B NEGATIVE FOR FLU A/B (NEGATIVE)
[2018-02-10 03:30] LABS: VENOUS BLOOD GAS BASE EXCESS 0.3 mmol/L (0.0-2.0); VENOUS BLOOD GAS PO2 50 mm/Hg (30-55); VENOUS BLOOD PH 7.39 (7.32-7.43)
[2018-02-10 05:10] LABS: URINE BILIRUBIN SMALL (NEGATIVE); URINE BLOOD NEGATIVE (NEGATIVE); URINE GLUCOSE (UA) NEGATIVE (NEGATIVE); URINE LEUKOCYTE ESTERASE NEGATIVE Leu/uL (NEGATIVE); URINE PROTEIN NEGATIVE mg/dL (<30 mg/dL)
[2018-02-10 05:42] LABS: URINE APPEARANCE SL CLOUDY (CLEAR); URINE COLOR DARK YELLOW (YELLOW)
[2018-02-10] MEDS ORDERED: cefTRIAXone 1 gm 1 GM/100 ML BAG IVPB STA (05:52)
[2018-02-10] MEDS ORDERED: Albuterol-Ipratrop 3 mg / 0.5 (3 ml) UD IH STA (05:53)
[2018-02-10] MEDS ORDERED: Azithromycin 500MG/NS 250ml 500 MG/250 ML BAG IVPB STA (05:53)
--- NOTE | 2018-02-10 09:00 | RAD ---
HISTORY: r/o PNA COMPARISON: Chest x-ray performed 11/23/16 TECHNIQUE: Chest PA and lateral FINDINGS: Examination limited by habitus and hypoinflation. LUNGS: No focal consolidation. Please note that chest x-ray has limited sensitivity for the detection of pulmonary masses. PLEURA: No significant pleural effusion identified. No definite pneumothorax . CARDIOVASCULAR: Heart size appears borderline enlarged, likely exaggerated by hypoinflation and portable technique. No atherosclerotic calcification present. OSSEOUS STRUCTURES: No acute osseous abnormality identified. VISUALIZED UPPER ABDOMEN: Unremarkable. OTHER FINDINGS: None. IMPRESSION: Hypoinflation.
[2018-02-10 10:01] VITALS: BMI 49.1
[2018-02-10] MEDS: Azithromycin 500MG/NS 250ml 500 MG/250 ML BAG IVPB SCH (13:00)
[2018-02-10] MEDS: cefTRIAXone 1 gm 1 GM/100 ML BAG IVPB SCH (13:00)
--- NOTE | 2018-02-10 15:40 | CT ---
Date of service: 02/10/2018 CT chest without IV contrast Indication: r/o pneumonia Technique: Contiguous axial images were obtained through the chest without intravenous contrast enhancement. Sagittal and coronal reconstructions were generated and reviewed. This CT exam was performed using 1 or more of the following dose reduction techniques: Automated exposure control, adjustment of the MAA and/or kV according to patient size, and/or use of iterative reconstruction technique. Radiation dose (DLP): 961.59 MGy-cm. Comparison: Chest x-ray performed 02/10/18, CTA chest performed 01/31/13 Findings: Visualized portions of the inferior thyroid gland appear unremarkable. The unenhanced mediastinal and hilar vascular structures appear grossly unremarkable. The heart appears within normal limits of size. Patchy lingular consolidation. Mild right basilar atelectasis. Bronchiectatic changes noted at the right lung base. No pleural effusion. No pneumothorax. Limited visualization of the noncontrast upper abdomen: Hypoattenuation of the liver compatible with hepatic steatosis. Cholelithiasis. Small hiatal hernia. No acute osseous abnormality is detected. Impression: Patchy lingular consolidation. Mild right basilar atelectasis. Bronchiectatic changes noted at the right lung base.
[2018-02-10] MEDS: Levalbuterol 0.63 MG/3 ML Inhal Soln UD IH SCH ×2 (16:27→20:26)
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
[2018-02-11 07:12] LABS: HEMOGLOBIN 12.8 g/dL (14.0-18.0); MEAN CELL VOLUME 87.9 fl (80.0-105.0); MEAN CORPUSCULAR HEMOGLOBIN 28.1 pg (25.0-35.0); MEAN CORPUSCULAR HGB CONC 31.9 g/dl (31.0-37.0); MEAN PLATELET VOLUME 8.9 fl (7.0-11.0); RBC 4.56 10^6/uL (3.5-6.1); RED CELL DISTRIBUTION WIDTH 14.3 % (11.5-14.5); WHITE BLOOD COUNT 7.6 10^3/uL (4.5-11.0)
[2018-02-11 07:29] LABS: ALB/GLOB RATIO 0.9 (1.1-1.8); ALBUMIN 3.8 g/dL (3.0-4.8); ALT/SGPT 108 U/L (7-56); AST/SGOT 134 U/L (17-59); BLOOD UREA NITROGEN 11 mg/dL (7-21); CALCIUM 8.7 mg/dL (8.4-10.5); GFR NON-AFRICAN AMERICAN > 60
[2018-02-11] MEDS: Levalbuterol 0.63 MG/3 ML Inhal Soln UD IH SCH ×3 (07:55→19:48)
[2018-02-11] MEDS: STRIBILD PO SCH (10:40)
[2018-02-11] MEDS: cefTRIAXone 1 gm 1 GM/100 ML BAG IVPB SCH (10:41)
[2018-02-11] MEDS: Azithromycin 500MG/NS 250ml 500 MG/250 ML BAG IVPB SCH (10:41)
--- NOTE | 2018-02-11 13:29 | US ---
HISTORY: elevated lfts COMPARISON: CT abdomen and pelvis without contrast performed 08/29/16 TECHNIQUE: Sonographic evaluation of the abdomen. FINDINGS: Examination limited by habitus. LIVER: Measures 21.5 cm in sagittal dimension. Echogenic liver may be seen in setting of hepatic parenchymal disease or fatty infiltration. No focal hepatic mass identified. The main portal vein appears patent with normal directional flow. No intrahepatic bile duct dilatation. GALLBLADDER: Gallstones. No gallbladder wall thickening. Negative sonographic Rico's sign as assessed by the operating system designer. COMMON BILE DUCT: Measures 8 mm. PANCREAS: Not well visualized. RIGHT KIDNEY: Measures 12.4 x 4.4 x 6.3 cm. No obstructing calculus or hydronephrosis identified. LEFT KIDNEY: Measures 11.8 x 7.4 x 6.7 cm. No obstructing calculus or hydronephrosis identified SPLEEN: Measures approximately 11.9 cm. AORTA: Not visualized. IVC: Not visualized. OTHER FINDINGS: None. IMPRESSION: Limited study. Hepatomegaly. Echogenic liver may be seen in setting of hepatic parenchymal disease or fatty infiltration. Cholelithiasis.
--- NOTE | 2018-02-11 17:39 | CP.PCM.PN ---
Subjective - Date & Time of Evaluation Date of Evaluation: 02/11/18 Time of Evaluation: 16:30 - Subjective Subjective: Infectious Disease Follow Up: February 11, 2018 37 yo male presenting with general myalgias, fevers up to 101.2 F, and headaches for the past 3 days. The patient had influenza vaccine 6 days ago. PMHx inclu clay HTN, HIV, and Lupus. He states he is compliant with HAART. He states last HIV Viral load was undetectable. Influenza test was negative. Feeling better today. Cultures negative. Leukocytosis normalized. Objective - Vital Signs/Intake and Output Vital Signs (last 24 hours): Temp Pulse Resp BP Pulse Ox 98.4 F 89 20 128/82 97 02/11/18 08:13 02/11/18 10:40 02/11/18 08:13 02/11/18 10:40 02/11/18 08:13 Intake and Output: 02/11/18 02/11/18 06:59 18:59 Intake Total 1620 Balance 1620 - Medications Medications: Current Medications Acetaminophen (Tylenol 325mg Tab) 650 mg PO Q6H PRN PRN Reason: Pain, Moderate (4-7) or >101.0 Amlodipine Besylate (Norvasc) 5 mg PO DAILY [facility] Last Admin: 02/11/18 10:40 Dose: 5 mg Guaifenesin/Dextromethorphan (Robitussin Dm) 10 ml PO Q6 PRN PRN Reason: Cough Home Med (Home Med) 1 unit PO DAILY [facility] Last Admin: 02/11/18 10:40 Dose: Not Given Ceftriaxone Sodium (Rocephin 1 Gram Ivpb) 1 gm in 100 mls @ 100 mls/hr IVPB DAILY [facility]; Protocol Last Admin: 02/11/18 10:41 Dose: 100 mls/hr Azithromycin (Zithromax 500mg In Ns) 500 mg in 250 mls @ 167 mls/hr IVPB DAILY [facility]; Protocol Last Admin: 02/11/18 10:41 Dose: 167 mls/hr Levalbuterol HCl (Xopenex) 0.63 mg IH TIDRESP [facility] Last Admin: 02/11/18 13:40 Dose: 0.63 mg - Labs Labs: 02/11/18 06:30 02/11/18 06:30 - Constitutional Appears: Non-toxic, No Acute Distress, Chronically Ill - Head Exam Head Exam: ATRAUMATIC, NORMOCEPHALIC - Eye Exam Eye Exam: EOMI, PERRL Pupil Exam: NORMAL ACCOMODATION, PERRL - ENT Exam ENT Exam: Mucous Membranes Moist, Normal External Ear Exam, TM's Normal Bilaterally - Neck Exam Neck Exam: Full ROM, Normal Inspection - Respiratory Exam Respiratory Exam: Clear to Ausculation Bilateral, NORMAL BREATHING PATTERN. absent: Rales, Rhonchi, Wheezes - Cardiovascular Exam Cardiovascular Exam: REGULAR RHYTHM, RRR, +S1, +S2 - GI/Abdominal Exam GI & Abdominal Exam: Soft, Normal Bowel Sounds. absent: Distended, Tenderness - Extremities Exam Extremities Exam: Full ROM, Normal Inspection - Neurological Exam Neurological Exam: Alert, Awake, CN II-XII Intact, Oriented x3 - Psychiatric Exam Psychiatric exam: Normal Affect, Normal Mood - Skin Skin Exam: Intact, Normal Color Assessment and Plan - Assessment and Plan (Free Text) Assessment: 37 yo male with HIV and Lupus as well as morbid obesity presenting with 3 days of myalgia, fevers up to 101.2 F, and headaches. Patient states compliance with HAART with undetectable HIV viral load. Influenza testing negative. Supportive care. On IV Rocephin and Azithromycin for antibiotic coverage. Supportive care. Obtain Procalcitonin level. Check HIV Viral load and CD4 counts. Most likely CAP. Afebrile today. Appears to be improving. Thank you for allowing me to participate in the care of the patient, we will follow with you.
[2018-02-11] MEDS: guaiFENesin DM 200 mg-20 mg/10 ml UD PO PRN (18:47)
[2018-02-12] MEDS: guaiFENesin DM 200 mg-20 mg/10 ml UD PO PRN (01:58)
[2018-02-12] MEDS ORDERED: Petrolatum Oint Foilpak (5 gm) TOP PRN (04:33)
[2018-02-12] MEDS: Levalbuterol 0.63 MG/3 ML Inhal Soln UD IH SCH ×3 (07:58→19:17)
--- NOTE | 2018-02-12 08:02 | PN ---
DATE: 02/11/2018 SUBJECTIVE: This 37-year-old male remains hospitalized with bronchial pneumonia. I did review his chest CT that was interpreted by Dr. Swapna Barrett, which shows a patchy lingular consolidation, mild right basilar atelectasis, and bronchiectatic changes at the right lung base. The patient was seen by Dr. Pietro Briones from Infectious Disease, who does recommend continued IV Rocephin and Zithromax and has also ordered HIV RNA quantitative PCR testing as well as lymphocyte subset panel regarding history of HIV while on HAART heart therapy as an outpatient. PHYSICAL EXAMINATION: GENERAL: The patient on physical exam remains in a normal sinus rhythm. VITAL SIGNS: Temperature is 98.4, respirations 20, pulse 89 and blood pressure 128/82, with a pulse ox of 97% on 2 liters nasal O2. HEENT: Head: Normocephalic, atraumatic. Eyes: No icterus. Ears: Clear. Throat: Noninjected. NECK: Supple. HEART: S1, S2. LUNGS: Occasional rhonchi that cleared with coughing. ABDOMEN: Obese. EXTREMITIES: No edema. SKIN: Without rash. NEUROLOGICAL: Intact. PSYCHOLOGICAL: Alert. VASCULAR: Legs warm to touch. LABORATORY DATA: White count 7600, previously 13,100, hemoglobin 12.8, hematocrit 40.1, platelets 251,000. Sodium 137, K 3.7, chloride 103, bicarb 26, BUN 11, creatinine 1, random blood sugar 88. Bilirubin 0.9, AST elevated at 134, ALT 108, elevated, and alk phos 62. Hepatitis A, B, and C serologies are pending. HIV and lymphocyte subset panels are pending and blood cultures are pending. Chest CT did reveal patchy lingular consolidation and also hepatic steatosis with cholelithiasis and small hiatal hernia. IMPRESSION: Morbidly obese 37-year-old male with history of human immunodeficiency virus, chronic hypertension, history of lupus, degenerative arthritis, now with elevated liver function tests on the basis of fatty liver, and lingular pneumonia. PLAN: My plans are to continue HIV virus medication from home, Norvasc, Robitussin, Rocephin, Zithromax, and inhalational Xopenex and p.r.n. Tylenol. I will await the results of hepatitis A, B, C serology, abdominal ultrasound, HIV RNA quantitative PCR testing as well as lymphocyte subset panel testing, blood cultures while continuing medications as outlined. He continues heart-healthy diet, nasal O2, and will be scheduled for physical therapy. All of the above was discussed with the patient and Nursing at bedside including nurse, Hosea Cavanaugh. All questions were answered. Sydnee Stover MD MTDD
[2018-02-12 08:05] LABS: HEPATITIS B SURFACE AG Negative (NEGATIVE)
--- NOTE | 2018-02-12 08:05 | HP ---
DATE OF EXAM: 02/10/2018 HISTORY OF PRESENT ILLNESS: This 37-year-old male was examined at his bedside in the presence of his nurse Hosea Cavanaugh, registered nurse. The patient was admitted with concerns of pneumonia. He is morbidly obese and has a history of HIV, hypertension and degenerative arthritis. He presented to [facility] ER with complaints of fever of 101.2 and headaches for the past 3 days and states he had his flu vaccine approximately 1 week ago. PAST MEDICAL HISTORY: Significant for hypertension, HIV and lupus. The patient states he is consistent with HAART therapy and that his last viral load was undetectable. His influenza serology in the emergency room was unremarkable. PAST SURGICAL HISTORY: Significant for appendectomy. ALLERGIES: THE PATIENT DENIED ANY ALLERGIES TO MEDICATION. He states that he has had a dry cough with fever and emergency room physician was concerned about community-acquired pneumonia for which the patient is admitted and awaiting Infectious Disease consultation by Dr. Pietro Briones from Infectious Disease. SOCIAL HISTORY: The patient is an ex-smoker, social drinker and denies any use of illicit drugs. FAMILY HISTORY: Significant for hypertension and diabetes mellitus with multiple family members. REVIEW OF SYSTEMS: CONSTITUTIONAL: He had fever and chills. HEAD: No headache or seizure. EYES: No change in visual acuity. EARS: No hearing loss. THROAT: No swallowing difficulty. NECK: No stiffness. CARDIAC: Chronic hypertension. PULMONARY: Cough and congestion. ABDOMEN: No nausea, no vomiting. GENITOURINARY: No dysuria. SKIN: No rash. VASCULAR: No claudication. PSYCHOLOGICAL: No knowledge of depression. NEUROLOGICAL: No knowledge of stroke. PHYSICAL EXAMINATION: GENERAL: The patient was lying in bed, alert and oriented. VITAL SIGNS: Temperature 98.3, respirations 18, pulse 106 and blood pressure 134/100 with a pulse ox of 99% on 2 liters nasal O2. HEENT: Head: Normocephalic, atraumatic. Eyes: No icterus. Ears: Clear. Throat: Non-injected. NECK: Supple. HEART: S1, S2. LUNGS: With occasional rhonchi. No wheezing appreciated. ABDOMEN: Obese. EXTREMITIES: No edema.\ SKIN: Without rash. NEUROLOGICAL: Deconditioned. VASCULAR: Legs warm to touch. PSYCHOLOGICAL: Alert and oriented x3. LABORATORY DATA: White count of 13,100, hemoglobin 13.7, hematocrit 42.3, platelets 271,000. Sodium 135, K is 4.1, chloride 98, bicarb 29, BUN 11, creatinine 1.3, random blood sugar 97. Bilirubin 1.6, AST 79, ALT 74, alk phos 63. Urinalysis showed no white blood cells, no bacteria. Influenza A and B negative. Serology, group A beta-hemolytic strep antigen negative. Chest x-ray showed no obvious infiltrate. IMPRESSION: A 37-year-old male with history of cough and congestion, fever, rule out bronchial pneumonia, history of human immunodeficiency virus on HAART therapy with comorbidities of obesity, lupus, hypertension, degenerative arthritis, elevated liver function testing, rule out fatty liver. My plans as discussed with the patient and nursing at bedside will be to obtain a chest CT for further evaluation for infiltrate despite negative chest x-ray and I have ordered an abdominal ultrasound regarding elevated liver function testing to rule out fatty liver. I have requested a consultation with Dr. Pietro Briones from infectious disease and I have ordered a hepatitis A, B and C panel. The patient's blood cultures have been sent and are pending, and the patient will continue on dual nebulizer, HIV therapy from home, Norvasc 5 mg p.o. daily, Robitussin DM 10 mL p.o. q.6 hours p.r.n. cough. He will have Rocephin 1 g IV q.24, Zithromax 500 mg IV q.24, Tylenol 650 p.o. q.6 hours p.r.n. pain or temperature greater than 101. He is scheduled to have nasal O2, a heart-healthy diet. Based on clinical results, additional diagnostic workup and testing will be entertained. Greater than 75 minutes were spent in the care management, review of labs, orders, x-rays and discussion of this patient with himself and nurse, Mao. All questions were answered. Sydnee Stover MD
[2018-02-12 08:11] LABS: HEPATITIS A IGM NEGATIVE (NEGATIVE); HEPATITIS B CORE AB NEGATIVE (NEGATIVE)
[2018-02-12 08:23] LABS: HEPATITIS C ANTIBODY NEGATIVE (NEGATIVE)
[2018-02-12] MEDS: STRIBILD PO SCH (10:38)
[2018-02-12] MEDS: cefTRIAXone 1 gm 1 GM/100 ML BAG IVPB SCH (10:39)
[2018-02-12] MEDS: Azithromycin 500MG/NS 250ml 500 MG/250 ML BAG IVPB SCH (10:40)
--- NOTE | 2018-02-12 14:26 | PN ---
DATE: 02/12/2018 SUBJECTIVE: This 37-year-old male remains hospitalized with community-acquired pneumonia and comorbidities of HIV, quiescent lupus and morbid obesity as well as chronic hypertension and degenerative arthritis. He was admitted with a fever in excess of 101, but currently on IV antibiotics he is noted to have a temperature of 98.4. He admits to a cough and states he is feeling drained by the presenting symptoms. He remains in a sinus rhythm on athletic monitor. PHYSICAL EXAMINATION: VITAL SIGNS: Temperature 98.4, respirations 20, pulse 89 and blood pressure 128/82. Pulse ox 97% on 2 liters nasal O2. HEENT: Head, normocephalic and atraumatic. Eyes, no icterus. Ears, clear. Throat, noninjected. NECK: Supple. HEART: S1 and S2. LUNGS: With rhonchi at the right posterior base. No wheezing. No rales. ABDOMEN: Obese. EXTREMITIES: No edema. SKIN: Without rash. NEUROLOGICAL: Deconditioned. VASCULAR: Legs warm to touch. PSYCHOLOGIC: Alert and oriented x3. LABORATORY DATA: Sodium 137, potassium 3.7, chloride 103, bicarb 26, BUN 11, creatinine 1.0, random blood sugar 88, bilirubin 0.9, AST 134, ALT 108 and alk phos 62. White count 7600, hemoglobin 12.8, hematocrit 40.1 and platelets 251,000. Urinalysis, no bacteria. Hepatitis A, B and C panels negative. Influenza A and B negative and group A beta-hemolytic strep antigen testing negative. CT of the chest was reviewed and it does demonstrate right lingular consolidation as well as right basilar atelectasis and bronchiectatic changes in the right lung base. IMPRESSION: Community-acquired right lung pneumonia in a gentleman with history of human immunodeficiency virus, hypertension, morbid obesity, degenerative arthritis and quiescent lupus. As discussed with the patient at bedside, he will continue on his human immunodeficiency virus medication from home, Norvasc, Robitussin, Rocephin and IV Zithromax along with inhalational Xopenex and p.r.n. Tylenol. I did review his abdominal ultrasound consistent with hepatomegaly and hepato steatosis and the patient was advised of this finding and asymptomatic cholelithiasis and he was advised of the need for significant weight reduction and high-fiber low-fat diet. He is being followed by Dr. Pietro Briones from Infectious Disease and pending at present are HIV RNA PCR testing as well as lymphocyte subset panel testing. His urine and blood culture show no growth at 48 hours and the patient is being treated supportively given his multiple comorbidities as outlined above. Sydnee Stover MD MTDYohan
--- NOTE | 2018-02-12 17:50 | CP.PCM.PN ---
Subjective - Date & Time of Evaluation Date of Evaluation: 02/12/18 Time of Evaluation: 16:30 - Subjective Subjective: Infectious Disease Follow Up: February 12, 2018 37 yo male presenting with general myalgias, fevers up to 101.2 F, and headaches for the past 3 days. The patient had influenza vaccine 6 days ago. PMHx inclu clay HTN, HIV, and Lupus. He states he is compliant with HAART. He states last HIV Viral load was undetectable. Influenza test was negative. Feeling better today. Cultures negative. Leukocytosis normalized. Objective - Vital Signs/Intake and Output Vital Signs (last 24 hours): Temp Pulse Resp BP Pulse Ox 98.0 F 98 H 20 135/90 94 L 02/12/18 16:56 02/12/18 16:56 02/12/18 16:56 02/12/18 16:56 02/12/18 16:56 - Medications Medications: Current Medications Acetaminophen (Tylenol 325mg Tab) 650 mg PO Q6H PRN PRN Reason: Pain, Moderate (4-7) or >101.0 Amlodipine Besylate (Norvasc) 5 mg PO DAILY [facility] Last Admin: 02/12/18 10:38 Dose: 5 mg Azithromycin (Zithromax) 500 mg PO DAILY [facility] Emollient Ointment (Vaseline Oint) 5 gm TOP Q8H PRN PRN Reason: Dry skin Guaifenesin/Dextromethorphan (Robitussin Dm) 10 ml PO Q6 PRN PRN Reason: Cough Last Admin: 02/12/18 01:58 Dose: 10 ml Home Med (Home Med) 1 unit PO DAILY [facility] Last Admin: 02/12/18 10:38 Dose: Not Given Ceftriaxone Sodium (Rocephin 1 Gram Ivpb) 1 gm in 100 mls @ 100 mls/hr IVPB DAILY [facility]; Protocol Last Admin: 02/12/18 10:39 Dose: 100 mls/hr Levalbuterol HCl (Xopenex) 0.63 mg IH TIDRESP [facility] Last Admin: 02/12/18 13:33 Dose: 0.63 mg - Labs Labs: 02/11/18 06:30 02/11/18 06:30 - Constitutional Appears: Non-toxic, No Acute Distress, Chronically Ill - Head Exam Head Exam: ATRAUMATIC, NORMOCEPHALIC - Eye Exam Eye Exam: EOMI, PERRL Pupil Exam: NORMAL ACCOMODATION, PERRL - ENT Exam ENT Exam: Mucous Membranes Moist, Normal External Ear Exam, TM's Normal Bilaterally - Neck Exam Neck Exam: Full ROM, Normal Inspection - Respiratory Exam Respiratory Exam: Clear to Ausculation Bilateral, NORMAL BREATHING PATTERN. absent: Rales, Rhonchi, Wheezes - Cardiovascular Exam Cardiovascular Exam: REGULAR RHYTHM, RRR, +S1, +S2 - GI/Abdominal Exam GI & Abdominal Exam: Soft, Normal Bowel Sounds. absent: Distended, Tenderness - Extremities Exam Extremities Exam: Full ROM, Normal Inspection - Neurological Exam Neurological Exam: Alert, Awake, CN II-XII Intact, Oriented x3 - Psychiatric Exam Psychiatric exam: Normal Affect, Normal Mood - Skin Skin Exam: Intact, Normal Color Assessment and Plan - Assessment and Plan (Free Text) Assessment: 37 yo male with HIV and Lupus as well as morbid obesity presenting with 3 days of myalgia, fevers up to 101.2 F, and headaches. Patient states compliance with HAART with undetectable HIV viral load. Influenza testing negative. Supportive care. On IV Rocephin and Azithromycin for antibiotic coverage. Supportive care. Obtain Procalcitonin level. Check HIV Viral load and CD4 counts. Most likely CAP. Afebrile today. Appears to be improving. No SOB. Thank you for allowing me to participate in the care of the patient, we will follow with you.
[2018-02-13] MEDS: guaiFENesin DM 200 mg-20 mg/10 ml UD PO PRN ×2 (05:56→11:33)
[2018-02-13] MEDS: Levalbuterol 0.63 MG/3 ML Inhal Soln UD IH SCH ×3 (08:20→20:51)
[2018-02-13] MEDS: cefTRIAXone 1 gm 1 GM/100 ML BAG IVPB SCH (09:46)
[2018-02-13] MEDS: STRIBILD PO SCH (09:57)
--- NOTE | 2018-02-13 17:19 | CP.PCM.PN ---
Subjective - Date & Time of Evaluation Date of Evaluation: 02/13/18 Time of Evaluation: 16:30 - Subjective Subjective: Infectious Disease Follow Up: February 13, 2018 37 yo male presenting with general myalgias, fevers up to 101.2 F, and headaches for the past 3 days. The patient had influenza vaccine 6 days ago. PMHx inclu clay HTN, HIV, and Lupus. He states he is compliant with HAART. He states last HIV Viral load was undetectable. Influenza test was negative. Feeling better today. Cultures negative. Leukocytosis normalized. On Ceftriaxone and Azithromycin IV. Objective - Vital Signs/Intake and Output Vital Signs (last 24 hours): Temp Pulse Resp BP Pulse Ox 98 F 79 20 142/98 H 96 02/13/18 08:44 02/13/18 08:44 02/13/18 08:44 02/13/18 08:44 02/13/18 08:44 - Medications Medications: Current Medications Acetaminophen (Tylenol 325mg Tab) 650 mg PO Q6H PRN PRN Reason: Pain, Moderate (4-7) or >101.0 Amlodipine Besylate (Norvasc) 10 mg PO DAILY [facility] Azithromycin (Zithromax) 500 mg PO DAILY [facility] Last Admin: 02/13/18 09:46 Dose: 500 mg Emollient Ointment (Vaseline Oint) 5 gm TOP Q8H PRN PRN Reason: Dry skin Guaifenesin/Dextromethorphan (Robitussin Dm) 10 ml PO Q6 PRN PRN Reason: Cough Last Admin: 02/13/18 11:33 Dose: 10 ml Home Med (Home Med) 1 unit PO DAILY [facility] Ceftriaxone Sodium (Rocephin 1 Gram Ivpb) 1 gm in 100 mls @ 100 mls/hr IVPB DAILY [facility]; Protocol Last Admin: 02/13/18 09:46 Dose: 100 mls/hr Levalbuterol HCl (Xopenex) 0.63 mg IH TIDRESP [facility] Last Admin: 02/13/18 13:47 Dose: 0.63 mg - Labs Labs: 02/11/18 06:30 02/11/18 06:30 - Constitutional Appears: Non-toxic, No Acute Distress, Chronically Ill - Head Exam Head Exam: ATRAUMATIC, NORMOCEPHALIC - Eye Exam Eye Exam: EOMI, PERRL Pupil Exam: NORMAL ACCOMODATION, PERRL - ENT Exam ENT Exam: Mucous Membranes Moist, Normal External Ear Exam, TM's Normal Bilaterally - Neck Exam Neck Exam: Full ROM, Normal Inspection - Respiratory Exam Respiratory Exam: Clear to Ausculation Bilateral, NORMAL BREATHING PATTERN. absent: Rales, Rhonchi, Wheezes - Cardiovascular Exam Cardiovascular Exam: REGULAR RHYTHM, RRR, +S1, +S2 - GI/Abdominal Exam GI & Abdominal Exam: Soft, Normal Bowel Sounds. absent: Distended, Tenderness - Extremities Exam Extremities Exam: Full ROM, Normal Inspection - Neurological Exam Neurological Exam: Alert, Awake, CN II-XII Intact, Oriented x3 - Psychiatric Exam Psychiatric exam: Normal Affect, Normal Mood - Skin Skin Exam: Intact, Normal Color Assessment and Plan - Assessment and Plan (Free Text) Assessment: 37 yo male with HIV and Lupus as well as morbid obesity presenting with 3 days of myalgia, fevers up to 101.2 F, and headaches. Patient states compliance with HAART with undetectable HIV viral load. Influenza testing negative. Supportive care. On IV Rocephin and Azithromycin for antibiotic coverage. Supportive care. Obtain Procalcitonin level. Check HIV Viral load and CD4 counts... results pending. Most likely CAP. Afebrile today. Appears to be improving. No SOB. Thank you for allowing me to participate in the care of the patient, we will follow with you.
[2018-02-13 18:33] LABS: % CD4 (T HELPER CELL) 40 Percent (30-61); % CD8 (SUPPRESSOR T CELL) 21 Percent (12-42); ABSOLUTE CD4 CELLS 1197 Cells/mcL (490-1740); ABSOLUTE CD8 CELLS 638 Cells/mcL (180-1170); ABSOLUTE LYMPHOCYTES 2994 Cells/mcL (850-3900); HELPER/SUPPRESSOR RATIO 1.88 Ratio (0.86-5.00)
--- NOTE | 2018-02-13 21:06 | PN ---
DATE: 02/13/2018 SUBJECTIVE: This 37-year-old male was examined at bedside on the morning of 02/13/2018. His case was reviewed in detail with nurse, Vanessa Romeo, registered nurse. The patient remains weak and deconditioned and does have a productive cough but is cooperating with physical therapy and is starting to ambulate. He denied any shaking chills. PHYSICAL EXAMINATION VITAL SIGNS: Normal sinus rhythm with a temperature of 98, respirations 20, pulse 79, blood pressure 135/90 and pulse ox 96%. HEENT: Head: Normocephalic, atraumatic. Eyes: No icterus. Ears: Clear. Throat: Non-injected. NECK: Supple. HEART: S1, S2. LUNGS: Rhonchi and occasional wheezing that cleared with coughing. ABDOMEN: Obese, nontender. No rebound, no guarding. EXTREMITIES: No edema. SKIN: Without rash. NEUROLOGICAL: Deconditioned. VASCULAR: Legs warm to touch. LABORATORY DATA: White count 7600, hemoglobin 12.8, hematocrit 40.1, platelets 251,000. Sodium 137, K 3.7, chloride 103, bicarb 26, BUN 11, creatinine 1, random blood sugar 88, bilirubin 0.8, AST 134, ALT 108, alk phos 62. Urinalysis unremarkable. Hepatitis A, B and C serology negative. Influenza A and B serology negative. Group A beta hemolytic strep antigen serology negative. CAT scan was consistent with right lung pneumonia. Abdominal ultrasound was consistent with asymptomatic gallstones and fatty liver. IMPRESSION: A 37-year-old male with pneumonia, asymptomatic cholelithiasis, fatty liver, elevated liver function tests on the basis of fatty liver, morbid obesity, hypertension, quiescent lupus and degenerative arthritis. PLAN: The plan at present is to continue HIV medication from home. Norvasc will be increased to 10 mg p.o. daily given persistent hypertension. He continues on Robitussin 10 mL p.o. every 6 hours p.r.n. cough, Rocephin 1 g IV every 24 hours, Zithromax 500 mg p.o. daily, Xopenex inhalational therapy 0.63 mg t.i.d. and Tylenol 650 p.o. every 6 hours p.r.n. fever or pain. It should be noted that the patient's HIV RNA quantitative PCR studies as well as lymphocyte subset panels remain pending. He is on a heart-healthy diet with nasal O2 p.r.n. He is scheduled for physical therapy for reconditioning and gait training. The patient will remain hospitalized given his persistent deconditioning, symptomatology and pneumonia in the setting of HIV status. All of the above was reviewed with the patient and nurse. Temporary disability forms were filled out at the bedside for this patient. All questions were answered. Sydnee Stover MD MTDD
[2018-02-14] MEDS: Levalbuterol 0.63 MG/3 ML Inhal Soln UD IH SCH ×3 (08:21→19:42)
[2018-02-14] MEDS: STRIBILD PO SCH ×2 (09:20→09:59)
[2018-02-14] MEDS: cefTRIAXone 1 gm 1 GM/100 ML BAG IVPB SCH (09:21)
--- NOTE | 2018-02-14 11:27 | PN ---
DATE: 02/14/2018 SUBJECTIVE: This 37-year-old male remains hospitalized with right lung pneumonia, cough, congestion and marked deconditioning. He has been running intermittent low-grade fever and does have a productive cough. He is starting to cooperate with physical therapy and is ambulating better in his room. He remains in sinus rhythm. PHYSICAL EXAMINATION: VITAL SIGNS: Temperature of 98.5, respirations 20, pulse 72 and blood pressure 134/96 with a pulse ox of 96% on 2 liters nasal O2. Head: Normocephalic, atraumatic. Eyes: No icterus. Ears: Clear. Throat: Noninjected. NECK: Supple. HEART: Irregular S1, S2. LUNGS: Have rhonchi and expiratory wheezing at the right posterior lung base. No rales were appreciated. ABDOMEN: Obese. EXTREMITIES: No edema. SKIN: Without rash. NEUROLOGIC: Deconditioned. VASCULAR: Legs warm to touch. PSYCHOLOGICAL: Alert and oriented x3. LABORATORY DATA: White count 7600, hemoglobin 12.8, hematocrit 40.1, platelets 251,000. Sodium 137, K 3.7, chloride 103, bicarb 26, BUN 11, creatinine 1.0, random blood sugar 88, AST 134, ALT 108, absolute lymphocyte count 2994, normal being 850 to [address], CD-4 cells 40% normal being 30-61. T helped his pressure suppress ratio 1.88, normal being 0.86 to 5.0. CD 8% cells 21, normal being 12 to 42. Hepatitis ABC serologies are negative. Influenza A and B serology negative, group A beta hemolytic strep antigen negative. IMPRESSION: A 37-year-old male with stable human immunodeficiency syndrome, also with morbid obesity, chronic hypertension asymptomatic cholelithiasis, fatty liver, now with right lower lung pneumonia, degenerative arthritis and quiescent lupus. PLAN: The plan at present is to continue HIV medication as outlined. He continues on adjusted Norvasc 10 mg p.o. daily for accelerated hypertension, Robitussin 10 mL p.o. every six hours, Rocephin 1 g IV every 24 hours, Zithromax 500 mg p.o. daily, Xopenex inhalational therapy scheduled 3 times daily, Tylenol p.r.n. fever and is encouraged to ambulate with physical therapy and is awaiting HIV RNA quantitative PCR studies. Of note, both urine and blood culture remain negative. The patient will be continuing IV antibiotics for a minimum of 7-10 days given comorbidities and all of the above was reviewed with the patient and nursing at bedside. Temporary disability forms were completed. Sydnee Stover MD
--- NOTE | 2018-02-14 14:43 | CP.PCM.PN ---
Subjective - Date & Time of Evaluation Date of Evaluation: 02/14/18 Time of Evaluation: 13:30 - Subjective Subjective: Infectious Disease Follow Up: February 14, 2018 37 yo male presenting with general myalgias, fevers up to 101.2 F, and headaches for the past 3 days. The patient had influenza vaccine 6 days ago. PMHx inclu clay HTN, HIV, and Lupus. He states he is compliant with HAART. He states last HIV Viral load was undetectable. Influenza test was negative. Feeling better today. Cultures negative. Leukocytosis normalized. On Ceftriaxone and Azithromycin IV. CD4 here was excellent at 1197. Objective - Vital Signs/Intake and Output Vital Signs (last 24 hours): Temp Pulse Resp BP Pulse Ox 98.5 F 72 20 134/96 H 96 02/14/18 06:00 02/14/18 06:00 02/14/18 06:00 02/14/18 09:20 02/14/18 06:00 Intake and Output: 02/14/18 02/14/18 06:59 18:59 Intake Total 600 Balance 600 - Medications Medications: Current Medications Acetaminophen (Tylenol 325mg Tab) 650 mg PO Q6H PRN PRN Reason: Pain, Moderate (4-7) or >101.0 Amlodipine Besylate (Norvasc) 10 mg PO DAILY [facility] Last Admin: 02/14/18 09:20 Dose: 10 mg Azithromycin (Zithromax) 500 mg PO DAILY [facility] Last Admin: 02/14/18 09:21 Dose: 500 mg Emollient Ointment (Vaseline Oint) 5 gm TOP Q8H PRN PRN Reason: Dry skin Guaifenesin/Dextromethorphan (Robitussin Dm) 10 ml PO Q6 PRN PRN Reason: Cough Last Admin: 02/13/18 11:33 Dose: 10 ml Home Med (Home Med) 1 unit PO DAILY [facility] Last Admin: 02/14/18 09:59 Dose: 1 unit Ceftriaxone Sodium (Rocephin 1 Gram Ivpb) 1 gm in 100 mls @ 100 mls/hr IVPB DAILY [facility]; Protocol Last Admin: 02/14/18 09:21 Dose: 100 mls/hr Levalbuterol HCl (Xopenex) 0.63 mg IH TIDRESP [facility] Last Admin: 02/14/18 14:10 Dose: 0.63 mg - Labs Labs: 02/11/18 06:30 02/11/18 06:30 - Constitutional Appears: Non-toxic, No Acute Distress, Chronically Ill - Head Exam Head Exam: ATRAUMATIC, NORMOCEPHALIC - Eye Exam Eye Exam: EOMI, PERRL Pupil Exam: NORMAL ACCOMODATION, PERRL - ENT Exam ENT Exam: Mucous Membranes Moist, Normal External Ear Exam, TM's Normal Bilaterally - Neck Exam Neck Exam: Full ROM, Normal Inspection - Respiratory Exam Respiratory Exam: Clear to Ausculation Bilateral, NORMAL BREATHING PATTERN. absent: Rales, Rhonchi, Wheezes - Cardiovascular Exam Cardiovascular Exam: REGULAR RHYTHM, RRR, +S1, +S2 - GI/Abdominal Exam GI & Abdominal Exam: Soft, Normal Bowel Sounds. absent: Distended, Tenderness - Extremities Exam Extremities Exam: Full ROM, Normal Inspection - Neurological Exam Neurological Exam: Alert, Awake, CN II-XII Intact, Oriented x3 - Psychiatric Exam Psychiatric exam: Normal Affect, Normal Mood - Skin Skin Exam: Intact, Normal Color Assessment and Plan - Assessment and Plan (Free Text) Assessment: 37 yo male with HIV and Lupus as well as morbid obesity presenting with 3 days of myalgia, fevers up to 101.2 F, and headaches. Patient states compliance with HAART with undetectable HIV viral load. Influenza testing negative. Supportive care. On IV Rocephin and Azithromycin for antibiotic coverage. Supportive care. Obtain Procalcitonin level. Check HIV Viral load and CD4 counts... results pending. CD4 was 1197 which is excellent. Most likely CAP. Afebrile today. Improving. No SOB. Thank you for allowing me to participate in the care of the patient, we will follow with you.
[2018-02-15] MEDS: Levalbuterol 0.63 MG/3 ML Inhal Soln UD IH SCH ×3 (08:21→19:22)
[2018-02-15] MEDS: STRIBILD PO SCH (09:18)
[2018-02-15] MEDS: cefTRIAXone 1 gm 1 GM/100 ML BAG IVPB SCH (09:28)
--- NOTE | 2018-02-15 18:08 | CP.PCM.PN ---
Subjective - Date & Time of Evaluation Date of Evaluation: 02/15/18 Time of Evaluation: 16:00 - Subjective Subjective: Infectious Disease Follow Up: February 15, 2018 37 yo male presenting with general myalgias, fevers up to 101.2 F, and headaches for the past 3 days. The patient had influenza vaccine 6 days ago. PMHx inclu clay HTN, HIV, and Lupus. He states he is compliant with HAART. He states last HIV Viral load was undetectable. Influenza test was negative. Feeling better today. Cultures negative. Leukocytosis normalized. On Ceftriaxone and Azithromycin IV. CD4 here was excellent at 1197. HIV viral load undetectable. Objective - Vital Signs/Intake and Output Vital Signs (last 24 hours): Temp Pulse Resp BP Pulse Ox 97.8 F 76 18 122/82 98 02/15/18 17:23 02/15/18 17:23 02/15/18 17:23 02/15/18 17:23 02/15/18 17:23 Intake and Output: 02/15/18 02/15/18 06:59 18:59 Intake Total 600 Balance 600 - Medications Medications: Current Medications Acetaminophen (Tylenol 325mg Tab) 650 mg PO Q6H PRN PRN Reason: Pain, Moderate (4-7) or >101.0 Amlodipine Besylate (Norvasc) 10 mg PO DAILY [facility] Last Admin: 02/15/18 09:19 Dose: 10 mg Azithromycin (Zithromax) 500 mg PO DAILY [facility] Last Admin: 02/15/18 09:27 Dose: 500 mg Clonidine HCl (Catapres) 0.1 mg PO Q4H PRN PRN Reason: diastolic BP >100 Last Admin: 02/14/18 16:03 Dose: 0.1 mg Emollient Ointment (Vaseline Oint) 5 gm TOP Q8H PRN PRN Reason: Dry skin Guaifenesin/Dextromethorphan (Robitussin Dm) 10 ml PO Q6 PRN PRN Reason: Cough Last Admin: 02/13/18 11:33 Dose: 10 ml Home Med (Home Med) 1 unit PO DAILY [facility] Last Admin: 02/15/18 09:18 Dose: 1 unit Levalbuterol HCl (Xopenex) 0.63 mg IH TIDRESP [facility] Last Admin: 02/15/18 13:45 Dose: 0.63 mg - Labs Labs: 02/11/18 06:30 02/11/18 06:30 - Constitutional Appears: Non-toxic, No Acute Distress, Chronically Ill - Head Exam Head Exam: ATRAUMATIC, NORMOCEPHALIC - Eye Exam Eye Exam: EOMI, PERRL Pupil Exam: NORMAL ACCOMODATION, PERRL - ENT Exam ENT Exam: Mucous Membranes Moist, Normal External Ear Exam, TM's Normal Bilaterally - Neck Exam Neck Exam: Full ROM, Normal Inspection - Respiratory Exam Respiratory Exam: Clear to Ausculation Bilateral, NORMAL BREATHING PATTERN. absent: Rales, Rhonchi, Wheezes - Cardiovascular Exam Cardiovascular Exam: REGULAR RHYTHM, RRR, +S1, +S2 - GI/Abdominal Exam GI & Abdominal Exam: Soft, Normal Bowel Sounds. absent: Distended, Tenderness - Extremities Exam Extremities Exam: Full ROM, Normal Inspection - Neurological Exam Neurological Exam: Alert, Awake, CN II-XII Intact, Oriented x3 - Psychiatric Exam Psychiatric exam: Normal Affect, Normal Mood - Skin Skin Exam: Intact, Normal Color Assessment and Plan - Assessment and Plan (Free Text) Assessment: 37 yo male with HIV and Lupus as well as morbid obesity presenting with 3 days of myalgia, fevers up to 101.2 F, and headaches. Patient states compliance with HAART with undetectable HIV viral load. Influenza testing negative. Supportive care. On IV Rocephin and Azithromycin for antibiotic coverage. Supportive care. Check HIV Viral load and CD4 counts... results pending. CD4 was 1197 which is excellent. HIV viral load undetectable. Most likely CAP. Afebrile today. Improving. No SOB. On discharge, can utilize Keflex 500mg BID for 5 days more. Thank you for allowing me to participate in the care of the patient, we will follow with you.
[2018-02-16 07:39] VITALS: BP 127/87; PULSE 74; RESP 20; TEMP 98.5; O2SAT 96
[2018-02-16] MEDS: Levalbuterol 0.63 MG/3 ML Inhal Soln UD IH SCH (08:17)
[2018-02-16] MEDS: STRIBILD PO SCH (09:09)
--- NOTE | 2018-02-16 12:13 | DS ---
DISCHARGE DIAGNOSES: Right lower lobe community-acquired pneumonia, improved; chronic hypertension; morbid obesity; history of quiescent lupus; gout and history of human immunodeficiency virus. DISPOSITION: Home. Follow up in my office, , 02/22/2018. CONSULTANTS: Dr. Pietro Briones from Infectious Disease. The patient will follow up with his infectious disease specialist, Dr. Janak Dominguez, as scheduled. DISCHARGE MEDICATIONS: Include Keflex 500 mg p.o. twice a day #10 no refill. Norvasc 10 mg p.o. daily, Stribild tablet daily and heart-healthy bland diet as instructed. SUMMARY: This 37-year-old male was admitted to [facility] with cough, congestion, fever, and clinical and radiographic evidence of right lower lung pneumonia. He was treated with parenteral antibiotics at the time of discharge was afebrile with a temperature of 97.8, respirations 18, pulse 76 and blood pressure 122/82 with a pulse ox of 98% room air. The patient was cleared for discharge by Dr. Pietro Briones from Infectious Disease. His HIV-RNA quantitative study showed none detected. He had an negative influenza A and B serology group A beta hemolytic strep antigen was negative, hepatitis ABC serologies were negative, and discharge labs showed white count 7600, hemoglobin 12.8, hematocrit 40.1, platelets 251,000. Sodium 137, K 3.7, chloride 103, bicarb 26, BUN 11, creatinine 1.0 and random blood sugar 88. The patient did have elevated LFTs including AST 134, ALT 108, alk phos 62 and bilirubin 0.9, and did undergo a abdominal ultrasound which confirmed asymptomatic cholelithiasis and fatty liver. The patient will not return to work until seen in my office as an outpatient and was instructed regarding his discharge medication and diet. All of the above was reviewed with the patient and his nurse Deonte Nuñez, registered nurse. All questions were answered. Sydnee Stover MD MTDYohan
--- NOTE | 2018-02-16 13:09 | CP.PCM.PN ---
Subjective - Date & Time of Evaluation Date of Evaluation: 02/16/18 Time of Evaluation: 11:30 - Subjective Subjective: Infectious Disease Follow Up: February 16, 2018 37 yo male presenting with general myalgias, fevers up to 101.2 F, and headaches for the past 3 days. The patient had influenza vaccine 6 days ago. PMHx inclu clay HTN, HIV, and Lupus. He states he is compliant with HAART. He states last HIV Viral load was undetectable. Influenza test was negative. Feeling better today. Cultures negative. Leukocytosis normalized. On Ceftriaxone and Azithromycin IV. CD4 here was excellent at 1197. HIV viral load undetectable. Objective - Vital Signs/Intake and Output Vital Signs (last 24 hours): Temp Pulse Resp BP Pulse Ox 98.5 F 74 20 127/87 96 02/16/18 07:38 02/16/18 07:38 02/16/18 07:38 02/16/18 09:09 02/16/18 07:38 - Labs Labs: 02/11/18 06:30 02/11/18 06:30 - Constitutional Appears: Non-toxic, No Acute Distress, Chronically Ill - Head Exam Head Exam: ATRAUMATIC, NORMOCEPHALIC - Eye Exam Eye Exam: EOMI, PERRL Pupil Exam: NORMAL ACCOMODATION, PERRL - ENT Exam ENT Exam: Mucous Membranes Moist, Normal External Ear Exam, TM's Normal Bilaterally - Neck Exam Neck Exam: Full ROM, Normal Inspection - Respiratory Exam Respiratory Exam: Clear to Ausculation Bilateral, NORMAL BREATHING PATTERN. absent: Rales, Rhonchi, Wheezes - Cardiovascular Exam Cardiovascular Exam: REGULAR RHYTHM, RRR, +S1, +S2 - GI/Abdominal Exam GI & Abdominal Exam: Soft, Normal Bowel Sounds. absent: Distended, Tenderness - Extremities Exam Extremities Exam: Full ROM, Normal Inspection - Neurological Exam Neurological Exam: Alert, Awake, CN II-XII Intact, Oriented x3 - Psychiatric Exam Psychiatric exam: Normal Affect, Normal Mood - Skin Skin Exam: Intact, Normal Color Assessment and Plan - Assessment and Plan (Free Text) Assessment: 37 yo male with HIV and Lupus as well as morbid obesity presenting with 3 days of myalgia, fevers up to 101.2 F, and headaches. Patient states compliance with HAART with undetectable HIV viral load. Influenza testing negative. Supportive care. On IV Rocephin and Azithromycin for antibiotic coverage. Supportive care. Check HIV Viral load and CD4 counts... results pending. CD4 was 1197 which is excellent. HIV viral load undetectable. Most likely CAP. Afebrile today. Improving. No SOB. On discharge, can utilize Keflex 500mg BID for 5 days more. Thank you for allowing me to participate in the care of the patient, we will follow with you.
--- NOTE | 2018-02-16 13:32 | PN ---
DATE: 02/15/2018 SUBJECTIVE: This 37-year-old male was examined at bedside. He is slowly improving in reconditioning and is now able to ambulate independently. His cough is looser and he is denying fever, chills or chest pain. He is tolerating IV antibiotics including IV Rocephin and oral Zithromax under the direction of Dr. Pietro Briones from Infectious Disease. PHYSICAL EXAMINATION: VITAL SIGNS: Temperature 98.4, respirations 18, pulse 71, blood pressure 137/89. Pulse ox 95%. GENERAL: He remains in sinus rhythm. HEENT: Head: Normocephalic, atraumatic. Eyes: No icterus. Ears: Clear. Throat: Noninjected. NECK: Supple. HEART: S1, S2. LUNGS: With rhonchi at the right base. ABDOMEN: Obese. EXTREMITIES: No edema. SKIN: Without rash. NEUROLOGIC: better conditioned. VASCULAR: Legs warm to touch. PSYCHOLOGICAL: Alert and oriented x3. LABORATORY DATA: White count 7600, hemoglobin 12.8, hematocrit 40.1, platelets 251,000. Sodium 137, K 3.7, chloride 103, bicarb 26, BUN 11, creatinine 1, random blood sugar 88. IMPRESSION: A 37-year-old male with history of human immunodeficiency virus, chronic hypertension, degenerative arthritis, quiescent lupus, history of quiescent gout, now with community-acquired pneumonia and deconditioning, improving on parenteral antibiotics including IV Rocephin and oral Zithromax with blood pressure being treated with Norvasc 10 mg p.o. daily, clonidine 0.1 mg p.o. every 4 hours p.r.n. accelerated hypertension if systolic blood pressure greater than 160 or diastolic blood pressure greater than 100. He continues on his home HIV medication including elvitegravir/cobicistat/emtricitabine/tenofovir/disoproxil which is (known as Stribild tablet) one p.o. daily from home. He continues on Xopenex inhalational therapy t.i.d. and Robitussin 10 mL p.o. every six hours p.r.n. cough. Ultimate plan will be for discharge to home in a.m. if medically stable and cleared by Dr. Briones with outpatient followup in my office. All of the above was reviewed in detail with the patient and nursing. All questions were answered. Sydnee Stover MD [facility] # [id number]
== END 2018-02-16 12:00 | disposition home or self-care (01) | DRG 975 ==
LOC: ED 23:15 → ERH 02-10 05:50 → 3RSO 02-10 06:57 → 3RNO 02-14 19:57
PROVIDERS: ADMIT Internal Medicine; ATTEND Internal Medicine
DX: J18.1 Lobar pneumonia, unspecified organism (principal); B20 Human immunodeficiency virus [HIV] disease; Z68.42 Body mass index [BMI] 45.0-49.9, adult; I10 Essential (primary) hypertension; M32.9 Systemic lupus erythematosus, unspecified; M10.9 Gout, unspecified; K80.20 Calculus of gallbladder without cholecystitis without obstruction; K76.0 Fatty (change of) liver, not elsewhere classified; M19.90 Unspecified osteoarthritis, unspecified site; E66.01 Morbid (severe) obesity due to excess calories; Z83.3 Family history of diabetes mellitus; Z87.891 Personal history of nicotine dependence

== ENCOUNTER 2018-05-28 23:51 | Emergency (ER) | payer BC ==
[2018-05-28 23:52] VITALS: BMI 49.1
[2018-05-29 00:32] VITALS: TEMP 98.3; O2SAT 98
[2018-05-29] MEDS ORDERED: Sodium Chloride 0.9% 1,000 ML IV STA (00:42)
--- NOTE | 2018-05-29 00:48 | ED PDOC ---
Arrival/HPI - General Historian: Patient - History of Present Illness Narrative History of Present Illness (Text): 05/29/18 00:45 38-year-old male with past medical history of lupus, HIV on antiviral therapy, rheumatoid arthritis and hypertension, presents complaining of intermittent generalized weakness for the past 2 weeks associated with a slight fever today and fever for 1 day last week. He also noticed that he is having intermittent discoloration to both of his eyes and discharge in the morning to both of his eyes. Patient does state that he viral count is low and CD4 count is good. He also adds that he has been drinking alcohol at least 3-4 times a week which is more than his usual since his father recently . Otherwise denies any URI cough, nausea, vomiting, diarrhea, abdominal pain, urinary symptoms, chest pain, shortness of breath, headache, dizziness, decrease in vision, eye pain, recent travel, sick contacts, SI, HI. PMD Ck <Mary Estrada PA-C - Last Filed: 05/29/18 01:24> <Alberto Benítez - Last Filed: 05/30/18 21:28> - General Chief Complaint: Weakness/Neurological Deficit Time Seen by Provider: 05/29/18 00:32 Past Medical History - Infectious Disease Hx of Infectious Diseases: None - Tetanus Immunization Tetanus Immunization: Unknown - Cardiac Hx Cardiac Disorders: Yes Hx Hypertension: Yes Other/Comment: pericaridal effusion, cardiac window 2005 - Pulmonary Hx Respiratory Disorders: No - Neurological Hx Neurological Disorder: No - HEENT Hx HEENT Disorder: No - Renal Hx Renal Disorder: No - Endocrine/Metabolic Hx Endocrine Disorders: Yes Hx Systemic Lupus Erythematosus: Yes - Hematological/Oncological Hx Blood Disorders: Yes Hx Blood Transfusions: No Hx Blood Transfusion Reaction: No - Integumentary Hx Dermatological Disorder: No - Musculoskeletal/Rheumatological Hx Musculoskeletal Disorders: Yes Hx Falls: No Hx Osteoarthritis: Yes Hx Rheumatoid Arthritis: Yes - Gastrointestinal Hx Gastrointestinal Disorders: No - Genitourinary/Gynecological Hx Genitourinary Disorders: No - Psychiatric Hx Psychophysiologic Disorder: No Hx Substance Use: No - Past Surgical History Past Surgical History: No Previous - Surgical History Hx Appendectomy: Yes (2017) Other/Comment: cardiac window - Anesthesia Hx Anesthesia: Yes Hx Anesthesia Reactions: No Hx Malignant Hyperthermia: No - Suicidal Assessment Feels Threatened In Home Enviroment: No <Mary Estrada PA-C - Last Filed: 05/29/18 01:24> Family/Social History Family/Social History: No Known Family HX Smoking Status: Former Smoker Hx Alcohol Use: Yes Frequency of alcohol use: Few days per week Hx Substance Use: No Hx Substance Use Treatment: No <Mary Estrada PA-C - Last Filed: 05/29/18 01:24> Allergies/Home Meds <Mary Estrada PA-C - Last Filed: 05/29/18 01:24> <Alberto Benítez - Last Filed: 05/30/18 21:28> Allergies/Adverse Reactions: Allergies No Known Allergies Allergy (Verified 02/10/18 00:38) Home Medications: Home Meds Medication Instructions Recorded Confirmed Elviteg/Margie/Emtric/Tenofo Dis 1 tab PO DAILY 01/31/13 05/29/18 [Stribild Tablet] Biotin [Nature's Blend Biotin] 1,000 mcg PO DAILY 05/29/18 05/29/18 Review of Systems - Review of Systems Constitutional: Fatigue, Other (generalized weakness). absent: Fevers Eyes: absent: Vision Changes, Photophobia, Eye Pain ENT: absent: Sore Throat, Rhinorrhea, Epistaxis Respiratory: absent: SOB, Cough, Sputum Cardiovascular: absent: Chest Pain, Palpitations Gastrointestinal: absent: Abdominal Pain, Nausea, Vomiting Genitourinary Male: absent: Dysuria, Frequency Musculoskeletal: Arthralgias, Myalgias. absent: Back Pain, Neck Pain Skin: absent: Rash, Pruritis, Skin Lesions Neurological: absent: Headache, Dizziness <Mary Estrada PA-C - Last Filed: 05/29/18 01:24> Physical Exam Vital Signs Temp Pulse Resp BP Pulse Ox 05/29/18 00:31 98.3 F 95 H 18 145/97 H 98 Temperature: Afebrile Blood Pressure: Normal Pulse: Regular Respiratory Rate: Normal Appearance: Positive for: Well-Appearing, Non-Toxic, Comfortable Pain Distress: None Mental Status: Positive for: Alert and Oriented X 3 - Systems Exam Head: Present: Atraumatic, Normocephalic Pupils: Present: PERRL Extroacular Muscles: Present: EOMI Conjunctiva: Present: Normal Mouth: Present: Moist Mucous Membranes Neck: Present: Normal Range of Motion. No: Meningeal Signs, Lymphadenopathy Respiratory/Chest: Present: Clear to Auscultation, Good Air Exchange. No: Respiratory Distress, Accessory Muscle Use Cardiovascular: Present: Regular Rate and Rhythm, Normal S1, S2. No: Murmurs Abdomen: No: Tenderness, Distention, Peritoneal Signs Back: Present: Normal Inspection Upper Extremity: Present: Normal Inspection. No: Cyanosis, Edema Lower Extremity: Present: Normal Inspection. No: Edema Neurological: Present: GCS=15, CN II-XII Intact, Speech Normal, Motor Func Grossly Intact, Normal Sensory Function, Gait Normal Skin: Present: Warm, Dry, Normal Color. No: Rashes Psychiatric: Present: Alert, Oriented x 3, Normal Insight, Normal Concentration <Mary Estrada PA-C - Last Filed: 05/29/18 01:24> Vital Signs Temp Pulse Resp BP Pulse Ox 05/29/18 02:29 89 17 142/87 98 05/29/18 00:31 98.3 F 95 H 18 145/97 H 98 <Alberto Benítez - Last Filed: 05/30/18 21:28> Medical Decision Making ED Course and Treatment: 05/29/18 00:43 Plan : - IV - Labs - UA, urine cx - EKG - CXR - Rapid flu - NS IVF - Reassess / disposition - CT A/P / US abd EKG: ST at 103 bpm, (-) acute ST changes, as read by DOMINIK. CXR : NAD, as read by DOMINIK Lab results reviewed and wnl. On reevaluation, patient remains awake alert and oriented 3 in no acute distress. Results d/w the patient, advised to cute down on his alcohol consumption, as the increase in alcohol intake could be making him feels fatigued. Otherwise dvised to follow up with primary care physician in 1-2 days without fail. Return to the emergency room at any time for any new or worsening symptoms. Patient states he fully agrees with and understands discharge instructions. States that he agrees with the plan and disposition. Verbalized and repeated discharge instructions and plan. I have given the patient opportunity to ask any additional questions. - RAD Interpretation Radiology Orders: 05/29/18 00:42 CHEST PORTABLE [RAD] Stat <Mary Estrada PA-C - Last Filed: 05/29/18 01:24> - Lab Interpretations Microbiology Results: Microbiology Results 05/29/18 00:45 Urine,Clean Catch Urine Culture - Final Staphylococcus Sp Coag Neg Lab Results: Total Bilirubin 0.5 mg/dL (0.2-1.3) 05/29/18 00:50 AST 39 U/L (17-59) 05/29/18 00:50 ALT 49 U/L (7-56) 05/29/18 00:50 Alkaline Phosphatase 61 U/L (38-126) 05/29/18 00:50 Total Protein 9.2 g/dL (5.8-8.3) H 05/29/18 00:50 Albumin 4.6 g/dL (3.0-4.8) 05/29/18 00:50 Globulin 4.6 gm/dL 05/29/18 00:50 Albumin/Globulin Ratio 1.0 (1.1-1.8) L 05/29/18 00:50 Lipase 180 U/L (23-300) 05/29/18 00:50 Urine Color Yellow (YELLOW) 05/29/18 00:45 Urine Appearance Clear (CLEAR) 05/29/18 00:45 Urine pH 6.0 (4.7-8.0) 05/29/18 00:45 Ur Specific Casanova 1.025 (1.005-1.035) 05/29/18 00:45 Urine Protein Trace mg/dL (<30 mg/dL) H 05/29/18 00:45 Urine Glucose (UA) Negative mg/dL (NEGATIVE) 05/29/18 00:45 Urine Ketones Negative mg/dL (NEGATIVE) 05/29/18 00:45 Urine Blood Negative (NEGATIVE) 05/29/18 00:45 Urine Nitrate Negative (NEGATIVE) 05/29/18 00:45 Urine Bilirubin Negative (NEGATIVE) 05/29/18 00:45 Urine Urobilinogen 1.0 E.U./dL (<1 E.U./dL) H 05/29/18 00:45 Ur Leukocyte Esterase Negative Mauricio/uL (NEGATIVE) 05/29/18 00:45 Urine RBC 0 - 2 /hpf (0-2) 05/29/18 00:45 Urine WBC 0 - 2 /hpf (0-6) 05/29/18 00:45 Ur Epithelial Cells 0 - 2 /hpf (0-5) 05/29/18 00:45 Urine Bacteria None /hpf (NONE) 05/29/18 00:45 Urine Other Mucus /hpf 05/29/18 00:45 - RAD Interpretation Radiology Orders: 05/29/18 00:42 CHEST PORTABLE [RAD] Stat - Medication Orders Current Medication Orders: Discontinued Medications Sodium Chloride (Sodium Chloride 0.9%) 1,000 mls @ 500 mls/hr IV .Q2H STA Stop: 05/29/18 02:41 Last Admin: 05/29/18 01:01 Dose: 500 mls/hr eMAR Start Stop Document 05/29/18 01:01 CNR (Rec: 05/29/18 01:01 CNR [id number]) Intravenous Solution Start Date 05/29/18 Start Time 01:01 End Date 05/29/18 End time 02:26 Total Infusion Time 85 <Alberto Benítez - Last Filed: 05/30/18 21:28> - PA / SYSTEMS COORDINATOR / Resident Statement MARIAA has reviewed & agrees with the documentation as recorded. <Mary Estrada PA-C - Last Filed: 05/29/18 01:24> Disposition/Present on Arrival - Present on Arrival Any Indicators Present on Arrival: No History of DVT/PE: No History of Uncontrolled Diabetes: No Urinary Catheter: No History of Decub. Ulcer: No History Surgical Site Infection Following: None - Disposition Have Diagnosis and Disposition been Completed?: Yes Disposition Time: 01:45 Patient Plan: Discharge <Mary Estrada PA-C - Last Filed: 05/29/18 01:24> <Alberto Benítez - Last Filed: 05/30/18 21:28> - Disposition Diagnosis: Malaise Disposition: HOME/ ROUTINE Condition: GOOD Discharge Instructions (ExitCare): Fatigue Additional Instructions: Thank you for letting us take care of you today. You were treated for malaise. The emergency medical care you received today was directed at your acute symptoms. It may take several days for your symptoms to resolve. Return to the Emergency Department if your symptoms worsen, do not improve, or if you have any other problems. Please contact your doctor in 2 days for re-evaluation and follow up. Bring any paperwork you were given at discharge with you along with any medications you are taking to your follow up visit. Our treatment cannot replace ongoing medical care by a primary care provider (PCP) outside of the emergency department. Thank you for allowing the [facility] team to be part of your care today. If you had an X-Ray : A Radiologist will review the ED reading if any change in treatment is needed we will contact you. If you had a urine culture: It will take several days for the results, if any change in treatment is needed we will contact you. Referrals: Sydnee Stover MD [Primary Care Provider] - Follow up with primary Forms: [employer] (N[place]ian), WORK NOTE
[2018-05-29 01:04] LABS: URINE BILIRUBIN NEGATIVE (NEGATIVE); URINE BLOOD NEGATIVE (NEGATIVE); URINE GLUCOSE (UA) NEGATIVE (NEGATIVE); URINE LEUKOCYTE ESTERASE NEGATIVE Leu/uL (NEGATIVE); URINE PROTEIN TRACE mg/dL (<30 mg/dL)
[2018-05-29 01:12] LABS: URINE APPEARANCE CLEAR (CLEAR); URINE COLOR YELLOW (YELLOW)
[2018-05-29 01:17] LABS: ALBUMIN 4.6 g/dL (3.0-4.8); ALT/SGPT 49 U/L (7-56); AST/SGOT 39 U/L (17-59); BASO # 0.01 K/mm3 (0.0-2.0); BASO % 0.1 % (0.0-3.0); BLOOD UREA NITROGEN 16 mg/dL (7-21); CALCIUM 9.8 mg/dL (8.4-10.5); EOS % 0.3 % (1.5-5.0); GFR NON-AFRICAN AMERICAN > 60; HEMOGLOBIN 14.3 g/dL (14.0-18.0); LIPASE 180 U/L (23-300); LYMPH # 4.9 (1.2-3.4); LYMPH % 46.4 % (22.0-35.0); MEAN CELL VOLUME 90.5 fl (80.0-105.0); MEAN CORPUSCULAR HEMOGLOBIN 28.4 pg (25.0-35.0); MEAN CORPUSCULAR HGB CONC 31.4 g/dl (31.0-37.0); MEAN PLATELET VOLUME 9.2 fl (7.0-11.0); MONO # 0.7 (0.1-0.6); MONO % 6.6 % (1.0-6.0); RBC 5.03 10^6/uL (3.5-6.1); RED CELL DISTRIBUTION WIDTH 13.7 % (11.5-14.5); WHITE BLOOD COUNT 10.5 10^3/uL (4.5-11.0)
[2018-05-29 01:17] LABS: URINE EPITHELIAL CELLS 0 - 2 /hpf (0-5); URINE RBC 0 - 2 /hpf (0-2); URINE WBC 0 - 2 /hpf (0-6)
[2018-05-29 02:30] VITALS: BP 142/87; PULSE 89; RESP 17
--- NOTE | 2018-05-29 09:01 | RAD ---
Date of service: 05/29/2018 HISTORY: weak COMPARISON: 02/10/2018 TECHNIQUE: 1 view obtained. FINDINGS: LUNGS: No active pulmonary disease. PLEURA: No significant pleural effusion identified, no pneumothorax apparent. CARDIOVASCULAR: No aortic atherosclerotic calcification present. Normal cardiac size. No pulmonary vascular congestion. OSSEOUS STRUCTURES: No significant abnormalities. VISUALIZED UPPER ABDOMEN: Normal. OTHER FINDINGS: None. IMPRESSION: No active disease.
--- NOTE | 2018-05-29 12:17 | CARD ---
APPROVED REPORT Date of service: 05/29/2018 EKG Measurement Heart [id number] <Conclusion> Sinus tachycardia Minimal voltage criteria for LVH, may be normal variant Borderline ECG
== END 2018-05-29 02:29 | disposition home or self-care (01) ==
LOC: ED 23:51
DX: R53.81 Other malaise (principal); I10 Essential (primary) hypertension; M32.9 Systemic lupus erythematosus, unspecified; M06.9 Rheumatoid arthritis, unspecified; Z87.891 Personal history of nicotine dependence
CPT/HCPCS: 71045; 80053; 81001; 83690; 85025; 87086; 87804; 93005; 96360; 99285; J7030

== ENCOUNTER 2018-06-05 10:33 | Observation (INO) | payer BC ==
[2018-06-05 10:39] VITALS: BMI 49.8
--- NOTE | 2018-06-05 11:26 | ED PDOC ---
Arrival/HPI - General Chief Complaint: Chest Pain Time Seen by Provider: 06/05/18 10:55 Historian: Patient - History of Present Illness Narrative History of Present Illness (Text): 06/05/18 10:55 Itz Cárdenas is a 38 year old male, with a past medical history of pericardial window, lupus, HIV, rheumatoid arthritis, and hypertension, who presents to the emergency department complaining of sharp intermittent chest pain since 1 week. Patient also notes mild associated shortness of breath. Patient seen by lachelle stover, sent to er for evla. Patient denies any fevers, chills, headache, dizziness, vision changes, dyspnea on exertion, cough, diaphoresis, abdominal pain, nausea, vomiting, diarrhea, dysuria, hematuria, back pain, neck pain, or any other complaint. 06/05/18 18:48 06/05/18 18:52 Time/Duration: 1 week Symptom Onset: Gradual Symptom Course: Intermittent Activities at Onset: Light Context: Home Past Medical History - Provider Review Nursing Documentation Reviewed: Yes - Infectious Disease Hx of Infectious Diseases: None - Tetanus Immunization Tetanus Immunization: Unknown - Cardiac Hx Cardiac Disorders: Yes Hx Hypertension: Yes Other/Comment: pericaridal effusion, cardiac window 2005 - Pulmonary Hx Respiratory Disorders: No - Neurological Hx Neurological Disorder: No - HEENT Hx HEENT Disorder: No - Renal Hx Renal Disorder: No - Endocrine/Metabolic Hx Endocrine Disorders: Yes Hx Systemic Lupus Erythematosus: Yes - Hematological/Oncological Hx Blood Disorders: Yes - Integumentary Hx Dermatological Disorder: No - Musculoskeletal/Rheumatological Hx Musculoskeletal Disorders: Yes Hx Osteoarthritis: Yes Hx Rheumatoid Arthritis: Yes - Gastrointestinal Hx Gastrointestinal Disorders: No - Genitourinary/Gynecological Hx Genitourinary Disorders: No - Psychiatric Hx Psychophysiologic Disorder: No Hx Substance Use: No - Past Surgical History Past Surgical History: No Previous - Surgical History Hx Appendectomy: Yes (2017) Other/Comment: cardiac window - Anesthesia Hx Anesthesia: Yes Hx Anesthesia Reactions: No Hx Malignant Hyperthermia: No - Suicidal Assessment Feels Threatened In Home Enviroment: No Family/Social History - Physician Review Nursing Documentation Reviewed: Yes Family/Social History: Unknown Family HX Smoking Status: Former Smoker Hx Alcohol Use: Yes Hx Substance Use: No Hx Substance Use Treatment: No Allergies/Home Meds Allergies/Adverse Reactions: Allergies No Known Allergies Allergy (Verified 06/05/18 13:00) Home Medications: Home Meds Medication Instructions Recorded Confirmed Elviteg/Margie/Emtric/Tenofo Dis 1 tab PO DAILY 01/31/13 06/05/18 [Stribild Tablet] Biotin [Nature's Blend Biotin] 1,000 mcg PO DAILY 05/29/18 06/05/18 Review of Systems - Review of Systems Constitutional: absent: Fevers, Other (chills) Eyes: absent: Vision Changes Respiratory: SOB. absent: Cough Cardiovascular: Chest Pain (intermittent and sharp). absent: SANTOS Gastrointestinal: absent: Abdominal Pain, Diarrhea, Nausea, Vomiting Genitourinary Male: absent: Dysuria, Hematuria Musculoskeletal: absent: Back Pain, Neck Pain Neurological: absent: Headache, Dizziness Endocrine: absent: Diaphoresis Physical Exam Vital Signs Reviewed: Yes Vital Signs Pulse Resp BP Pulse Ox 06/05/18 10:33 101 H 18 157/93 H 97 Blood Pressure: Hypertensive Pulse: Tachycardic Respiratory Rate: Normal Appearance: Positive for: Well-Appearing, Non-Toxic, Comfortable, Other (Morbidly Obese) Pain Distress: None Mental Status: Positive for: Alert and Oriented X 3 - Systems Exam Head: Present: Atraumatic, Normocephalic Pupils: Present: PERRL Extroacular Muscles: Present: EOMI Conjunctiva: Present: Normal Mouth: Present: Moist Mucous Membranes Neck: Present: Normal Range of Motion Respiratory/Chest: Present: Clear to Auscultation, Good Air Exchange. No: Respiratory Distress, Accessory Muscle Use, Wheezes, Rales, Rhonchi Cardiovascular: Present: Normal S1, S2, Tachycardic. No: Murmurs, Rub, Gallop Abdomen: Present: Normal Bowel Sounds. No: Tenderness, Distention, Peritoneal Signs, Rebound, Guarding Back: Present: Normal Inspection Upper Extremity: Present: Normal Inspection, Normal ROM, NORMAL PULSES, Neurovascularly Intact, Capillary Refill < 2s. No: Cyanosis, Edema Lower Extremity: Present: Normal Inspection, NORMAL PULSES, Normal ROM, Neurovascularly Intact, Capillary Refill < 2 s. No: Edema Neurological: Present: GCS=15, CN II-XII Intact, Speech Normal, Motor Func Grossly Intact, Normal Sensory Function Skin: Present: Warm, Dry, Normal Color. No: Rashes Psychiatric: Present: Alert, Oriented x 3, Normal Insight, Normal Concentration Medical Decision Making ED Course and Treatment: 06/05/18 10:55 Impression: Itz Cárdenas is a 38 year old male, with a past medical history of hypertension and pericardial window, who presents to the emergency department complaining of sharp intermittent chest pain since one week. Patient notes mild associated shortness of breath. Denies F/C/N/V/D. On exam; patient is morbidly obese and tachycardic. Otherwise unremarkable. Plan: -- EKG -- Chest X-Ray -- Labs -- Aspirin 325mg -- Urinalysis -- Reassess and disposition Prior Visits: Notes and results from previous visits were reviewed. Progress Notes: 06/05/18 11:08 Discussed case w/ Dr. Stover (PMD), patient admitted to telemetry for cardiac obs. 06/05/18 17:36 cp ro acs -labs neg. asa given. - RAD Interpretation Narrative RAD Interpretations (Text): 06/05/18 12:13 Chest X-Ray shows: IMPRESSION: No active disease. Radiology Orders: 06/05/18 11:05 CHEST PORTABLE [RAD] Stat Treatment Specialist: Radiologist - EKG Interpretation EKG Interpretation (Text): 06/05/18 11:44 Reviewed EKG, shows: Sinus Tachycardia at [address]/T wave changes. Interpreted by ED Physician: Yes Type: 12 lead EKG - Medication Orders Current Medication Orders: Discontinued Medications Aspirin (Aspirin) 325 mg PO STAT STA Stop: 06/05/18 11:16 Last Admin: 06/05/18 11:21 Dose: 325 mg - Scribe Statement The provider has reviewed the documentation as recorded by the Marguerite Trejo All medical record entries made by the Marguerite were at my direction and personally dictated by me. I have reviewed the chart and agree that the record a ccurately reflects my personal performance of the history, physical exam, medical decision making, and the department course for this patient. I have also personally directed, reviewed, and agree with the discharge instructions and disposition. Disposition/Present on Arrival - Present on Arrival Any Indicators Present on Arrival: No History of DVT/PE: No History of Uncontrolled Diabetes: No Urinary Catheter: No History of Decub. Ulcer: No History Surgical Site Infection Following: None - Disposition Have Diagnosis and Disposition been Completed?: Yes Diagnosis: Chest pain Disposition: HOSPITALIZED Disposition Time: 18:30 Patient Problems: Current Active Problems Problem Status Onset Chest pain Acute Condition: STABLE
[2018-06-05 11:45] LABS: BASO # 0.01 K/mm3 (0.0-2.0); BASO % 0.2 % (0.0-3.0); EOS # 0.1 (0.0-0.7); EOS % 1.2 % (1.5-5.0); HEMOGLOBIN 14.6 g/dL (14.0-18.0); LYMPH # 2.7 (1.2-3.4); LYMPH % 40.7 % (22.0-35.0); MEAN CELL VOLUME 89.4 fl (80.0-105.0); MEAN CORPUSCULAR HEMOGLOBIN 28.2 pg (25.0-35.0); MEAN CORPUSCULAR HGB CONC 31.6 g/dl (31.0-37.0); MEAN PLATELET VOLUME 9.4 fl (7.0-11.0); MONO # 0.6 (0.1-0.6); RBC 5.17 10^6/uL (3.5-6.1); RED CELL DISTRIBUTION WIDTH 13.8 % (11.5-14.5); WHITE BLOOD COUNT 6.6 10^3/uL (4.5-11.0)
[2018-06-05 11:59] LABS: INR 1.07; PROTHROMBIN TIME 12.1 SECONDS (9.4-12.5)
--- NOTE | 2018-06-05 12:16 | RAD ---
Date of service: 06/05/2018 HISTORY: cp COMPARISON: 05/29/2018 TECHNIQUE: 1 view obtained. FINDINGS: LUNGS: No active pulmonary disease. PLEURA: No significant pleural effusion identified, no pneumothorax apparent. CARDIOVASCULAR: No aortic atherosclerotic calcification present. Normal cardiac size. No pulmonary vascular congestion. OSSEOUS STRUCTURES: No significant abnormalities. VISUALIZED UPPER ABDOMEN: Normal. OTHER FINDINGS: None. IMPRESSION: No active disease.
[2018-06-05 12:17] LABS: ALBUMIN 3.9 g/dL (3.0-4.8); ALT/SGPT 48 U/L (7-56); AST/SGOT 43 U/L (17-59); BLOOD UREA NITROGEN 10 mg/dL (7-21); GFR NON-AFRICAN AMERICAN > 60
[2018-06-05 12:25] LABS: TROPONIN I < 0.01 ng/mL
--- NOTE | 2018-06-05 14:57 | CARD ---
APPROVED REPORT Date of service: 06/05/2018 EKG Measurement Heart [id number] <Conclusion> Sinus tachycardia Minimal voltage criteria for LVH, may be normal variant Nonspecific ST and T wave abnormality Abnormal ECG
[2018-06-05] MEDS ORDERED: Influenza Vaccine 60 mcg/0.5 mL SYR (4YR UP) IM ONE (16:07)
[2018-06-05] MEDS ORDERED: Pneumococcal 23-Valent Vaccine IM ONE (16:07)
[2018-06-06 00:21] LABS: URINE BILIRUBIN NEGATIVE (NEGATIVE); URINE BLOOD NEGATIVE (NEGATIVE); URINE GLUCOSE (UA) NEGATIVE (NEGATIVE); URINE LEUKOCYTE ESTERASE NEGATIVE Leu/uL (NEGATIVE); URINE PROTEIN NEGATIVE mg/dL (<30 mg/dL)
[2018-06-06 00:22] LABS: URINE APPEARANCE CLEAR (CLEAR); URINE COLOR YELLOW (YELLOW)
[2018-06-06] MEDS: EMTRICITABINE PO SCH (09:50)
[2018-06-06] MEDS: TENOFOVIR DISOPROXIL FUMARATE PO SCH (09:50)
[2018-06-06] MEDS: COBICISTAT PO SCH (09:50)
[2018-06-06] MEDS: ELVITEGRAVIR PO SCH (09:50)
--- NOTE | 2018-06-06 11:38 | CARD ---
APPROVED REPORT Date of service: 06/06/2018 EXAM: Two-dimensional and M-mode echocardiogram with Doppler and color Doppler. INDICATION Chest Pain 2D DIMENSIONS Left Atrium (2D)4.2 (1.6-4.0cm)IVSd1.8 (0.7-1.1cm) LVDd5.2 (3.9-5.9cm)PWd1.4 (0.7-1.1cm) LVDs3.8 (2.5-4.0cm)FS (%) 25.6 % LVEF (%)50.3 (>50%) M-Mode DIMENSIONS Aortic Root3.40 (2.2-3.7cm)Aortic Cusp Exc.2.20 (1.5-2.0cm) Aortic Valve AoV Peak Tgahpemp845.0cm/John Peak GR.4mmHg Mitral Valve E/A ratio0.0 TDI E/Lateral E'0.0E/Medial E'0.0 Tricuspid Valve TR Peak [id number] [id number] Peak Gr.11mmHg [id number] LEFT VENTRICLE The left ventricle is normal size. There is moderate concentric left ventricular hypertrophy. The left ventricular function is normal. The left ventricular ejection fraction is within the normal range. There is normal LV segmental wall motion. RIGHT VENTRICLE The right ventricle is normal size. The right ventricular systolic function is normal. ATRIA The left atrium size is normal. The right atrium size is normal. The interatrial septum is intact with no evidence for an atrial septal defect. AORTIC VALVE The aortic valve is normal in structure. No aortic regurgitation is present. There is no aortic valvular stenosis. MITRAL VALVE The mitral valve is normal in structure. There is no mitral valve regurgitation noted. TRICUSPID VALVE The tricuspid valve is normal in structure. GREAT VESSELS The aortic root is normal in size. The IVC is normal in size and collapses >50% with inspiration. PERICARDIAL EFFUSION There is no pleural effusion. There is no pericardial effusion. <Conclusion> Technically difficult study due to morbid obesity. Chamber sizes appear within normal limits. LV systolic function appears normal. Moderate concentric LVH.
[2018-06-06] MEDS ORDERED: Aminophylline 25 mg/ml Inj ONE (11:39)
--- NOTE | 2018-06-06 13:09 | PN ---
DATE: 06/06/2018 SUBJECTIVE: This 38-year-old male was examined at his bedside on the morning of 06/06/2018. His case was reviewed in detail with nurse, Rosaura Tejada, registered nurse. The patient remains in a normal sinus rhythm on the rn cardiac cath. He complains of intermittent musculoskeletal pain involving his shoulders and neck. He is being readied for echocardiography and stress test and based on his body habitus will require a 2-day stress test as discussed with cardiac technology. PHYSICAL EXAMINATION: VITAL SIGNS: He is in a normal sinus rhythm on rn cardiac cath. Temperature is 98.7, respirations 20, pulse 84 and blood pressure 132/97. HEENT: Head: Normocephalic, atraumatic. Eyes: No icterus. Ears: Clear. Throat: Noninjected. NECK: Supple. HEART: S1, S2. LUNGS: Clear. ABDOMEN: Soft. EXTREMITIES: No edema. SKIN: Without rash. NEUROLOGICAL: Intact. PSYCHOLOGICAL: Alert and oriented x3. VASCULAR: Legs warm to touch. IMAGING: EKG showed normal sinus rhythm with nonspecific ST-T wave changes. IMPRESSION: A 38-year-old male with exertional chest pain and shortness of breath in the setting of morbid obesity and comorbidities of chronic hypertension, recently accelerated, degenerative arthritis, human immunodeficiency virus, rheumatoid arthritis, history of lupus and pericardial window. PLAN: As discussed with the patient and nursing will be to continue clonidine 0.1 mg p.o. every 4 hours p.r.n. accelerated hypertension, Ecotrin 81 mg p.o. daily, Stribild 1 tablet p.o. daily, Motrin 600 mg p.o. every 6 hours p.r.n. pain, Norvasc 5 mg p.o. daily. He is scheduled for a fasting lipid panel in the a.m. Blood and urine cultures have been received. He will continue on heart healthy diet and based on clinical progress, additional diagnostic workup and testing will be entertained. Greater than 35 minutes was spent in the care management, review of labs, orders and x-rays and discussion of this patient with himself and nursing and cardiac technology. All questions were answered. Sydnee Stover MD [facility] # [id number]
--- NOTE | 2018-06-06 20:50 | CP.PCM.CON ---
History of Present Illness - History of Present Illness History of Present Illness: 38-year-old single -Ivorian male admitted with intermittent chest pain who appears anxious and depressed. The patient has a history of HIV dating back many years and He had been under the care of a psychotherapist in [place] for many years starting in 2001 relating to a number of life stressors but had to stop several years ago because he started making too much money to have services paid for. 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 He had also been seeing a psychiatrist and they are who had maintained him on undefined medication He comes from a broken home. Both parents are . He is the youngest of multiple children. He appears estranged from his siblings for reasons uncertain. He had been hospitalized a number of years ago, apparently at [facility] in [place] for either depression or anxiety. She may have been drinking excessively The patient also has been treated for lupus. He seems very sensitive about his HIV status and did not want me to talk about it when another patient or personnel were in the same room as him. He informs me that he has had interests in both plan and woman but appears presently to be interested in a male relationship should it become available. He is a high school graduate. He seemed to have warmed up as our interview proceeded, being somewhat anxious at the beginning. He seemed to react positively to our interaction but rejected my notion that he appeared to be friendly and juju bear like, rather he indicated that he can be irritable and capable of having temper and defending himself if need be. He did express an interest in continuing in psychotherapy and possibly medication management upon discharge. Past Patient History - Infectious Disease Hx of Infectious Diseases: None - Tetanus Immunizations Tetanus Immunization: Unknown - Past Medical History & Family History Past Medical History?: Yes - Past Social History Smoking Status: Former Smoker Home Situation {Lives}: Alone - CARDIAC Hx Cardiac Disorders: Yes Hx Hypertension: Yes Other/Comment: pericaridal effusion, cardiac window 2005 - PULMONARY Hx Respiratory Disorders: No - NEUROLOGICAL Hx Neurological Disorder: No - HEENT Hx HEENT Problems: No - RENAL Hx Chronic Kidney Disease: No - ENDOCRINE/METABOLIC Hx Endocrine Disorders: Yes Hx Systemic Lupus Erythematosus: Yes - HEMATOLOGICAL/ONCOLOGICAL Hx Blood Disorders: Yes - INTEGUMENTARY Hx Dermatological Problems: No - MUSCULOSKELETAL/RHEUMATOLOGICAL Hx Musculoskeletal Disorders: Yes Hx Osteoarthritis: Yes Hx Rheumatoid Arthritis: Yes - GASTROINTESTINAL Hx Gastrointestinal Disorders: No - GENITOURINARY/GYNECOLOGICAL Hx Genitourinary Disorders: No - PSYCHIATRIC Hx Psychophysiologic Disorder: No Hx Substance Use: No - SURGICAL HISTORY Hx Appendectomy: Yes (2017) Other/Comment: cardiac window - ANESTHESIA Hx Anesthesia: Yes Hx Anesthesia Reactions: No Hx Malignant Hyperthermia: No Meds Allergies/Adverse Reactions: Allergies Allergy/AdvReac Type Severity Reaction Status Date / Time No Known Allergies Allergy Verified 06/05/18 13:00 - Medications Medications: Current Medications Amlodipine Besylate (Norvasc) 5 mg PO DAILY [facility] Last Admin: 06/06/18 09:51 Dose: 5 mg Aspirin (Ecotrin) 81 mg PO DAILY [facility] Last Admin: 06/06/18 09:49 Dose: 81 mg Clonidine HCl (Catapres) 0.1 mg PO Q4H PRN PRN Reason: Diastolic blood pressure Home Med (Home Med) 1 unit PO DAILY [facility] Last Admin: 06/06/18 09:50 Dose: 1 unit Ibuprofen (Motrin Tab) 600 mg PO Q6H PRN PRN Reason: Pain, moderate (4-7) Last Admin: 06/06/18 17:32 Dose: 600 mg Results - Vital Signs Recent Vital Signs: Last Vital Signs Temp 97.9 F 06/06/18 17:48 Pulse 87 06/06/18 18:00 Resp 20 06/06/18 17:48 BP 141/97 H 06/06/18 17:48 Pulse Ox 98 06/05/18 14:46 - Labs Result Diagrams: 06/05/18 11:30 06/05/18 11:57 Labs: Laboratory Results - last 24 hr 06/05/18 06/06/18 06/06/18 21:45 00:10 04:05 Troponin I < 0.01 < 0.01 Urine Color Yellow Urine Appearance Clear Urine pH 6.0 Ur Specific [place] 1.025 Urine Protein Negative Urine Glucose (UA) Negative Urine Ketones Negative Urine Blood Negative Urine Nitrate Negative Urine Bilirubin Negative Urine Urobilinogen 1.0 H Ur Leukocyte Esterase Negative Assessment & Plan - Assessment and Plan (Free Text) Assessment: Patient expresses some concern about his physical condition. Some anxiety. This seems to benefit from interaction/psychotherapy and is interested in pursuing this upon discharge. Have given the name of a local psychotherapist and the patient indicates she will also follow-up in my office for continued psychiatric care and possible medication management.
--- NOTE | 2018-06-06 21:51 | HP ---
DATE OF EVALUATION: 05/918 HISTORY OF PRESENT ILLNESS: This is [id number] male who had presented to the [facility] ER complaining of shortness of breath with exertion. 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 PAST MEDICAL HISTORY: The patient's past medical history is significant for morbid obesity. He has a history of lupus, HIV, rheumatoid arthritis, hypertension and a pericardial window in the distant past. Of late, the patient has been very anxious and depressed over the sudden loss of his father to oral cancer. MEDICATIONS: The patient's past outpatient medications include Norvasc, Stribild and Biaxin. ALLERGIES: HE HAS NO KNOWN ALLERGIES TO MEDICATION. SOCIAL HISTORY: He is a current nondrinker, nonsmoker, non IV drug misuser. 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 FAMILY HISTORY: Father recently of oral cancer. REVIEW OF SYSTEMS Constitutional: He denied fever or chills. Head: No headache or seizures. Eyes: No change in visual acuity. Ears: No hearing loss. Throat: No swallowing difficulty. Neck: No stiffness. Cardiac: As per HPI. Pulmonary: Mild shortness of breath with exertion. GI: No hematemesis. No melena. : No dysuria. Skin: No rash. Vascular: No claudication. Psychological: New-onset anxiety and depression. Neurological: No knowledge of stroke. PHYSICAL EXAMINATION VITAL SIGNS: The patient had a temperature of 98.6, pulse of 100, blood pressure 157/93, respirations 18 and pulse ox 97% on room air. HEENT: Head; normocephalic, atraumatic. Eyes; no icterus. Ears; clear. Throat; noninjected. NECK: Supple. HEART: S1, S2. LUNGS: Clear. ABDOMEN: Obese. EXTREMITIES: No edema. SKIN: Without rash. NEUROLOGICAL: Intact. PSYCHOLOGICAL: Alert. VASCULAR: Legs warm to touch. LABORATORY DATA: White count 6600, hemoglobin 14.6, hematocrit 46.2, platelets 342,000. PT/INR 1.07. PTT 35. Sodium 140, potassium 4, chloride 104, bicarb 24, BUN 10, creatinine 0.9, random blood sugar 113, calcium 9, magnesium 1.7, bilirubin 0.7, AST 43, ALT 48, alk phos 57. Troponin less than 0.01. Urinalysis unremarkable. Chest x-ray was reviewed. It shows no infiltrate. No congestive heart failure. No pneumothorax. No effusion. EKG was reviewed. It shows a sinus tachycardia with nonspecific ST-T wave changes. IMPRESSION: A 38-year-old male with morbid obesity, chronic hypertension, history of HIV and now with increasing exertional shortness of breath and anxiety and depression. PLAN: The plan is to admit this patient to the Cardiac unit. His case has been reviewed in detail with nurse, Katie Gonzalez, Registered Nurse. He will be given clonidine 0.1 mg p.o. stat and 0.1 mg p.o. every 4 hours p.r.n. accelerated hypertension if his systolic blood pressure is greater than 160 or diastolic blood pressure is greater than 100. He will receive Ecotrin 81 mg p.o. daily, Tylenol 650 mg p.o. every 6 hours p.r.n. pain or temperature greater than 101, Norvasc 5 mg p.o. daily and his Stribild 1 tablet p.o. daily for his HIV management. I have ordered an echocardiogram, a stress test, heart-healthy diet and will order a fasting lipid panel. Based on his clinical results, additional diagnostic workup and testing will be entertained. A consultation with Dr. Sebastian from Psychiatry has been requested as well. Greater than 75 minutes was spent in the care management, review of labs, orders and x-rays and discussion of this patient with nursing and himself. All questions were answered. Sydnee Stover MD [facility]
--- NOTE | 2018-06-06 22:05 | CARD ---
APPROVED REPORT Date of service: 06/06/2018 Protocol: LEXISCAN Test Type: Lexiscan Sestamibi Stress Test Attending Physician: Dr. Olamide Anne Referring Physician: Dr. Sydnee Stover Test Indications: Chest Pain Height:6 ft 5 in Weight:419lbs Medical History: 38 y/o male. Hx of chest pain,shortness of breath, palpitations, hypertension, borderline high cholesterol, family hx of heart disease. Target HR: 183 bpm Resting ECG: RSR. Non Specific ST-T Changes. Resting Heart Rate: 81 bpm Resting Blood Pressure: 130/90mmHg Submaximum (85%): 156 bpm PROCEDURE Pharmacologic stress testing was performed using 0.4mg per 5ml of regadenoson given intravenously over 7-10 seconds. POST EXERCISE Reason for Termination: Protocol completed Target HR: No Max HR: 80 bpm 63% of Maximum Predicted HR: 183 bpm Exercise duration: 00:31 min:sec, 0 Stage Exercise capacity: 1.0METs Max Blood Pressure: 130/90mmHg Blood Pressure response to exercise: normal resting BP - appropriate response Heart Rate response to exercise: appropriate Chest Pain: No, none Angina index: 0 Arrhythmia: No, none ST Change: No, none Deviation: 0 mm INTERPRETATION Stress EKG Conclusion: IV LEXISCAN NUCLEAR STRESS TEST NEGATIVE FOR CHEST PAIN AND NEGATIVE FOR ST-T CHANGES. NUCLEAR SCAN REPORT PENDING. Signed by Olamide Anne Electronically Approved: 06/06/2018 12:07:05 EXAM: Myocardial Perfusion STRESS/REST Stress Test Type: Pharmacologic Imaging Protocol The imaging protocol used to acquire images was Stress Tc-99m/rest Tc-99m 1 day Rest Spect myocardial perfusion imaging was performed in supine position 60 minutes following the injection of 30.2 mCi of Tc-99 Myoview. At peak stress, the patient was injected intravenously with 10.6mCi of Tc-99 tetrofosmin after an infusion time of 0 minutes and 10 seconds. Gated Stress Spect was performed 65 minutes after intravenous Tc-99 Myoview injection. The images were gated to evaluate regional wall motion and calculate ventricular ejection fraction.Images were reconstructed using backfilter projection method in short horizontal and verticle long axis. Spect slices were generated. LV Perfusion The quality of the study is good. The left ventricle is mildly enlarged in size with thickened myocardium. The right ventricle is unremarkable. The lung uptake is within normal limits. The distribution of tracer reveals normal uptake pattern throughout the LV myocardium on the stress study. The rest myocardial perfusion study shows no significant change. Wall Motion Wall motion study shows good contractility of the left ventricle. LVEF = 62%. Conclusion 1. Normal SPECT myocardial perfusion study. 2. Normal gated wall motion of the left ventricle.
--- NOTE | 2018-06-07 03:43 | CP.PCM.PN ---
Subjective - Date & Time of Evaluation Date of Evaluation: 06/07/18 Time of Evaluation: 03:40 - Subjective Subjective: Patient was seen at bedside. I was asked to co-sign order for Toradol 30 mg IV x 1. States that he had tooth ache which is going away after receiving Toradol. States that pain started in right upper premolar area after he ate crackers e arlier in the day. States that he has this pain on & off for 2 weeks and thinks he has tooth abscess. No complaint of any drainage. Has no other complaints. Has been here for chest pain. Medical record was reviewed. This 38 year old male was admitted with sob with exertion, chest pain, anxiety-depression. Has PMH of Anxiety, depression, morbid obesity, HTN,HIV,Lupus, pericarditis, rheumatoid arthritis, pericardial window, former tobacco use , appendectomy. Objective - Vital Signs/Intake and Output Vital Signs (last 24 hours): Temp Pulse Resp BP Pulse Ox 97.9 F 82 20 141/97 H 98 06/06/18 17:48 06/06/18 22:00 06/06/18 17:48 06/06/18 17:48 06/05/18 14:46 Intake and Output: 06/06/18 06/07/18 18:59 06:59 Intake Total 1280 Balance 1280 - Medications Medications: Current Medications Amlodipine Besylate (Norvasc) 5 mg PO DAILY [facility] Last Admin: 06/06/18 09:51 Dose: 5 mg Aspirin (Ecotrin) 81 mg PO DAILY [facility] Last Admin: 06/06/18 09:49 Dose: 81 mg Clonidine HCl (Catapres) 0.1 mg PO Q4H PRN PRN Reason: Diastolic blood pressure Home Med (Home Med) 1 unit PO DAILY [facility] Last Admin: 06/06/18 09:50 Dose: 1 unit Ibuprofen (Motrin Tab) 600 mg PO Q6H PRN PRN Reason: Pain, moderate (4-7) Last Admin: 06/06/18 17:32 Dose: 600 mg - Labs Labs: 06/05/18 11:30 06/05/18 11:57 PT 12.1 SECONDS (9.4-12.5) 06/05/18 11:30 INR 1.07 06/05/18 11:30 APTT 35.0 Seconds (26.9-38.3) 06/05/18 11:30 - Constitutional Appears: Well, No Acute Distress - Head Exam Head Exam: ATRAUMATIC, NORMAL INSPECTION, NORMOCEPHALIC Additional comments: Obese. - Eye Exam Eye Exam: Normal appearance - ENT Exam ENT Exam: Normal External Ear Exam Additional comments: Has Ice bag on right angle of mouth, not willing to open mouth for exam. - Neck Exam Neck Exam: Normal Inspection - Respiratory Exam Respiratory Exam: NORMAL BREATHING PATTERN - Cardiovascular Exam Cardiovascular Exam: absent: JVD - GI/Abdominal Exam GI & Abdominal Exam: absent: Distended - Rectal Exam Rectal Exam: Deferred - Exam Additional comments: Deferred. - Extremities Exam Extremities Exam: Normal Inspection - Back Exam Back Exam: NORMAL INSPECTION - Neurological Exam Neurological Exam: Alert, Awake, Oriented x3 - Psychiatric Exam Psychiatric exam: Normal Affect, Normal Mood - Skin Skin Exam: Normal Color Assessment and Plan - Assessment and Plan (Free Text) Assessment: Tooth ache.?Infection/abscess. Chest pain. SOB. HTN. Obesity. HIV history. Anxiety. Depression. History of pericarditis and pericardial window. Former tobacco use. Plan: Toradol 30 mg IV x 1. Continue present management.
[2018-06-07 06:56] VITALS: O2SAT 96
[2018-06-07 07:25] LABS: HDL CHOLESTEROL 63 mg/dL (29-60)
[2018-06-07 07:36] LABS: LDL CHOLESTEROL 120 mg/dL (0-129)
--- NOTE | 2018-06-07 09:51 | CP.PCM.PN ---
Subjective - Date & Time of Evaluation Date of Evaluation: 06/07/18 Time of Evaluation: 09:46 - Subjective Subjective: I'm working as house doctor. I was paged to evaluate Mr Avi tooth ache. He stated pain has been ongoing for 1-2 days. IV toradol helps. Denies recent dental work. States he's compliant with his HIV meds. There is erythema and a small 2mm non-oozing nodule superior to the 3rd right tooth from midline that is tender to palpation. He had a max temp of 100.2 on admission. Plan -toradol 30mg ivp once to address his pain -recommend antibiotics -can consider imaging such as CT maxillary-facial to rule-out abscess -can consider ID consult given hx of HIV plan was endorsed to nurseGwen Objective - Vital Signs/Intake and Output Vital Signs (last 24 hours): Temp Pulse Resp BP Pulse Ox 98.8 F 105 H 18 143/93 H 96 06/07/18 06:00 06/07/18 06:00 06/07/18 06:00 06/07/18 06:00 06/07/18 06:00 Intake and Output: 06/07/18 06/07/18 06:59 18:59 Intake Total 1820 Output Total 600 Balance 1220 - Medications Medications: Current Medications Amlodipine Besylate (Norvasc) 5 mg PO DAILY [facility] Last Admin: 06/06/18 09:51 Dose: 5 mg Aspirin (Ecotrin) 81 mg PO DAILY [facility] Last Admin: 06/06/18 09:49 Dose: 81 mg Clonidine HCl (Catapres) 0.1 mg PO Q4H PRN PRN Reason: Diastolic blood pressure Home Med (Home Med) 1 unit PO DAILY [facility] Last Admin: 06/06/18 09:50 Dose: 1 unit Ibuprofen (Motrin Tab) 600 mg PO Q6H PRN PRN Reason: Pain, moderate (4-7) Last Admin: 06/07/18 09:03 Dose: 600 mg Ketorolac Tromethamine (Toradol) 30 mg IVP ONCE ONE Stop: 06/07/18 09:46 - Labs Labs: 06/05/18 11:30 06/05/18 11:57 PT 12.1 SECONDS (9.4-12.5) 06/05/18 11:30 INR 1.07 06/05/18 11:30 APTT 35.0 Seconds (26.9-38.3) 06/05/18 11:30
[2018-06-07] MEDS: TENOFOVIR DISOPROXIL FUMARATE PO SCH (10:11)
[2018-06-07] MEDS: EMTRICITABINE PO SCH (10:11)
[2018-06-07] MEDS: COBICISTAT PO SCH (10:11)
[2018-06-07] MEDS: ELVITEGRAVIR PO SCH (10:11)
[2018-06-07 12:12] VITALS: BP 134/86; PULSE 88; RESP 20; TEMP 97.9
--- NOTE | 2018-06-07 22:38 | CP.PCM.PN ---
Subjective - Date & Time of Evaluation Date of Evaluation: 06/07/18 Time of Evaluation: 12:00 - Subjective Subjective: Patient seen at bedtime with friend. Mood and affect improved. Patient relieved at the workup he received in the hospital regarding his mental and medical condition. Not homicidal suicidal or psychotic presently. Intends to follow-up in my office and with a therapist (Yanet CRUZ) that I have referred him to. Objective - Vital Signs/Intake and Output Vital Signs (last 24 hours): Temp Pulse Resp BP Pulse Ox 97.9 F 88 20 134/86 96 06/07/18 12:00 06/07/18 12:00 06/07/18 12:00 06/07/18 12:00 06/07/18 06:00 - Labs Labs: 06/05/18 11:30 06/05/18 11:57 PT 12.1 SECONDS (9.4-12.5) 06/05/18 11:30 INR 1.07 06/05/18 11:30 APTT 35.0 Seconds (26.9-38.3) 06/05/18 11:30 - Psychiatric Exam Psychiatric exam: Normal Affect Assessment and Plan - Assessment and Plan (Free Text) Assessment: Patient's mood and affect has improved in coordination with his physical improvement
--- NOTE | 2018-06-08 13:11 | DS ---
DATE OF EVALUATION; 06/07/2018. FINAL DIAGNOSES: Atypical chest pain, toothache, morbid obesity, history of human immunodeficiency virus, chronic hypertension, anxiety. DISPOSITION: Home. FOUNDATION RELATIONS DIRECTOR: Dr. Bipin Sebastian, from Psychiatry. The patient advised to follow up with his dentist today. The patient will continue on Norvasc 5 mg p.o. daily, Stribild tablet 1 tablet daily, biotin 1000 mg p.o. daily. The patient will continue his follow up with his Infectious Disease acquisition consultant regarding his ongoing issues with HIV and its management. The patient was advised by Dr. Sebastian to call his office for an appointment and follow up with the therapist that he recommended and also the patient was advised to follow up in my office within 1 week. He was given a prescription for penicillin VK 500 mg p.o. every 6 hours #20 no refills regarding his toothache and once again advised to follow up with his dentist regarding that issue today. SUMMARY: This is a 38-year-old morbidly obese male presented to the [facility] with complaints of intermittent chest discomfort. Given his history of hypertension and morbid obesity he was admitted for further evaluation of the above. He completed a echocardiogram that showed chamber sizes within normal limits. Left ventricular systolic function appeared normal and no significant valvular abnormalities were noted. He required a 2 day myocardial stress test due to body habitus, results of which showed negative for chest pain or EKG changes and a normal SPECT myocardial perfusion study with a normal gated wall motion of the left ventricle. On the morning of discharge, he was evaluated by Dr. Powell, the house physician because of a toothache. Upon further questioning, the patient admits to dental caries and poor dental hygiene. The patient was cleared for discharge with his prescription for penicillin and advised to see his dentist presently. Present for this interview was his brother Pietro. All of the above instructions were reviewed with himself, family at bedside and nurse Gwen Valdez. Greater than 35 minutes were spent in the discharge management of this gentleman all questions were answered. Sydnee Stover MD [facility]
== END 2018-06-07 13:34 | disposition home or self-care (01) ==
LOC: ED 10:33 → ERH 12:26 → 2RNO 14:45
PROVIDERS: ADMIT Internal Medicine; ATTEND Internal Medicine
DX: R07.89 Other chest pain (principal); R06.02 Shortness of breath; Z21 Asymptomatic human immunodeficiency virus [HIV] infection status; M06.9 Rheumatoid arthritis, unspecified; I10 Essential (primary) hypertension; M32.9 Systemic lupus erythematosus, unspecified; F32.9 Major depressive disorder, single episode, unspecified; F41.9 Anxiety disorder, unspecified; K08.89 Other specified disorders of teeth and supporting structures; M19.90 Unspecified osteoarthritis, unspecified site; Z87.891 Personal history of nicotine dependence; E66.01 Morbid (severe) obesity due to excess calories; Z68.42 Body mass index [BMI] 45.0-49.9, adult
CPT/HCPCS: 36415; 71045; 78452; 80053; 80061; 81003; 82550; 83615; 83735; 84484; 85025; 85610; 85730; 87040; 87086; 93005; 93017; 93306; 99285; A9502; G0378; J1885; J2785